=== PATIENT | female | born 2000 | race Caucasian/White ===

== ENCOUNTER 2024-06-30 10:19 | Emergency (ER) | payer MEDICAID, SELFPAY ==
[2024-06-30] VITALS (10 sets, daily range): BP systolic 98–134; BP diastolic 58–82; PULSE 83–112; RESP 14–20; TEMP 36.6–36.9; O2SAT 97–99; BMI 24.8
--- NOTE | ~2024-06-30 | CT_ITS ---
CLINICAL HISTORY: R flank LQ pain, TTP CT abdomen and pelvis with contrast Comparison: None Findings: The lung bases are clear. The right kidney is heterogeneous in appearance. Correlate for pyelonephritis. There is a gallstone with the gallbladder otherwise unremarkable. Remaining solid organs are within normal limits. No renal stones. No bowel obstruction, pneumoperitoneum, or pneumatosis. Pelvic contents unremarkable. Normal appendix. The bones are intact. IMPRESSION: Possible right pyelonephritis. Correlate clinically. This document has been electronically signed by: Jerry Persaud MD on 06/30/2024 20:50:22
[2024-06-30 11:25] LABS: MANUAL DIFF FLAG NO
[2024-06-30 11:28] LABS: Appearance Urine Clear; Color Urine Yellow; Glucose Urine UA Negative (Negative); Leukocyte Esterase Urine Small (1+) (Negative); Nitrite Urine Negative (Negative); Specific Gravity - Urine <= 1.005 (1.005-1.025); UMIC TRIGGER UACC YES; Urine Blood Small (1+) (Negative); Urine Ketones 15 mg/dL (Negative); Urine Protein Negative (Neg-Trace)
[2024-06-30 11:30] LABS: UPreg QC Valid YES; Urine Pregnancy NEGATIVE (NEGATIVE)
[2024-06-30 11:34] LABS: Basophils Absolute Auto 0.1 X10*3/uL (0.0-0.2); Basophils Percent Auto 0.5 % (0-2); Eosinophils Percent Auto 0.1 % (0-4); Hematocrit 36.5 % (37.0-47.0); Hemoglobin 12.4 g/dl (12.0-16.0); Imm Gran Abs Auto 0.07 X10*3/uL (0.00-0.03); Imm Gran Pct Auto 0.5 % (0.0-0.4); Lymphocytes Absolute Auto 1.1 X10*3/uL (1.2-4.9); Mean Corpuscular Hemoglobin 26.8 pg (27.0-33.0); Mean Platelet Volume 9.2 fL (9.4-12.3); Monocytes Absolute Auto 1.1 X10*3/uL (0.1-1.2); Monocytes Percent Auto 8.1 % (2-11); Neutrophils Percent Auto 82.8 % (45-73); Platelet Count 319 X10*3/uL (160-400); Red Blood Count 4.62 X10*6/uL (4.20-5.50); Red Cell Distribution Width 14.2 % (11.0-16.0); White Blood Count 13.3 X10*3/uL (4.8-10.8)
[2024-06-30 11:37] LABS: Bacteria Urine None Seen (None Seen); RBC Urine 0-2 /HPF (0-2); Squamous Epithelial Cell Urine 0-2 /HPF (0-2); UACC Culture Trigger YES
[2024-06-30 11:43] LABS: Alanine Aminotransferase 12 U/L (0-31); Alkaline Phosphatase 77 U/L (39-117); Anion Gap 11 (12-20); Aspartate Amino Transferase 19 U/L (5-31); Bilirubin Direct 0.3 mg/dL (0.0-0.5); Bilirubin Total 0.7 mg/dL (0.0-1.0); Blood Urea Nitrogen 7 mg/dL (9-16); Calcium 9.1 mg/dL (8.4-10.2); Carbon Dioxide 26 mmol/L (22-29); Chloride 98 mmol/L (96-108); Creatinine Clr Calc Pharmacy 92.2; Estimated Glomerular Filt Rate > 60; Glucose Random 94 mg/dL (60-115); Lipase 10 U/L (8-78); Potassium 3.4 mmol/L (3.3-5.1); Sodium 132 mmol/L (135-145); Total Protein 8.3 g/dL (6.5-8.0)
--- OUTSIDE RECORDS SUMMARY | 2024-06-30 16:33 | XMS_ITS | Encounter Summary ---
Author Organization [facility] Address [address] [place] [address] Care Team Providers Care Service Operator Name Role Phone Bridgett Martínez NP Primary Care Provider [phone] Alec Mclain MD Primary Care Provider [phone] Alec Mclain MD Primary Care Provider [phone] Encounter Details Date Type Department Care Team (Late st Contact Info) Description 02/06/2019 Orders Only [facility] [address] [place] [id number] Bridgett Martínez NP [address] [facility] [address] [place], [place] [id number] Social History Tobacco Use Types Packs/Day Years Used Date Smoking Tobacco: Never Smokeless Tobacco: Never Alcohol Use Standard Drinks/Week Comments Not Asked 0 (1 standard drink = 0.6 oz pur e alcohol) Comments No Sex and Gender Information Value Date Recorded Sex Assigned at Not on file Legal Sex Female 11:11 AM EDT Gender Identity Not on file Sexual Orientation Not on file documented as of this encounter Progress Notes * Janice Espino - 02/09/2019 3:58 PM EDT See TM 02/09/19. * Bridgett Martínez NP - 02/09/2019 3:07 PM EDT Please let patient know that her labs show some smaller cells- typically seen in iron deficiency anemia. I have ordered additional labs to fully evaluate this. Once available I can refer to the fertility clinic. documented in this encounter Plan of Treatment Scheduled Orders Name Type Priority Associated Diagnoses Orde r Schedule BASIC METABOLIC PANEL WITH (GFR) Lab Routine Low mean corpuscular volume (MCV) Expected: 07/08/2020 (Approximate), Expires: 07/08/2021 documented as of this encounter Procedures * Due to [place] law, this organization might not be sharing negative HIV tests. Procedure Name Priority Date/Time Associated Diagnosis Comments CBC INCLUDES DIFFERENTIAL AND PLATELET COUNT Routine 02/06/2019 9:14 AM EDT Irregular periods HCG, TOTAL, QL Routine 02/06/2019 9:14 AM EDT Irregular periods TSH, 3RD GENERATION Routine 02/06/2019 9 :14 AM EDT Irregular periods BASIC METABOLIC PANEL WITH (GFR) Routine 02/06/2019 9:14 AM EDT Irregular periods documented in this encounter Results * Due to [place] law, this organization might not be sharing negative HIV tests. * (ABNORMAL) IRON PROFILE (IRON/TIBC), SERUM (07/08/2020 8:31 AM EST) Iron 50 40 - 190 mcg/dL [facility] Iron binding capacity 371 250 - 450 mcg/dL (calc) [facility] Iron saturation 13(L) 16 - 45 % (calc) [facility] 07/08/2020 8:31 AM EST 07/08/2020 9:39 AM EST Narrative Resulting Agency Comment [id number] Bridgett Martínez NP LABORATORY Final Result Performing Organization Address [facility] de Phone Number [facility] [address] [place] [address] * FOLATE, SERUM (07/08/2020 8:31 AM EST) [facility] Folate 14.6 ng/mL [facility] Comment: ? Reference Range ? Low: ? <3.4 ? Borderline: ?3.4-5.4 ? Normal: ?>5.4 07/08/2020 8:31 AM EST 07/08/2020 9:39 AM EST Narrative Resulting Agency Comment [id number] Bridgett Martínez NP LABORATORY Final Result Performing Organization Address [facility] Phone Number [facility] [address] [place] [address] * FERRITIN (07/08/2020 8:31 AM EST) [facility] Ferritin 22 16 - 154 ng/mL [facility] 07/08/2020 8:31 AM EST 07/08/2020 9:39 AM EST Narrative Resulting Agency Comment [id number] Bridgett Martínez NP LABORATORY Final Result Performing Organization Address [facility] de Phone Number [facility] [address] [place] [address] * (ABNORMAL) CBC INCLUDES DIFFERENTIAL AND PLATELET COUNT (07/08/2020 8:31 AM EST) [facility] WBC 6.1 3.8 - 10.8 Thousand/u L [facility] RBC 4.87 3.80 - 5.10 Million/uL [facility] Hemoglobin 12.4 11.7 - 15.5 g/dL [facility] Hematocrit 38.3 35.0 - 45.0 % [facility] MCV 78.6(L) 80.0 - 100.0 fL [facility] MCH 25.5(L) 27.0 - 33.0 pg [facility] MCHC 32.4 32.0 - 36.0 g/dL [facility] RDW 14.6 11.0 - 15.0 % [facility] PLT 365 140 - 400 Thousand/u L [facility] MPV 10.4 7.5 - 12.5 fL [facility] Neutrophils # 3672 1500 - 7800 cells/uL [facility] Lymphocytes # 1787 850 - 3900 cells/uL [facility] Monocytes # 451 200 - 950 cells/uL [facility] Eosinophils # 128 15 - 500 cells/uL [facility] Basophils # 61 0 - 200 cells/uL [facility] Neutrophils % 60.2 % [facility] Lymphocytes % 29.3 % [facility] Monocytes % 7.4 % [facility] Eosinophils % 2.1 % [facility] Basophils % 1.0 % [facility] 07/08/2020 8:31 AM EST 07/08/2020 9:39 AM EST Narrative Resulting Agency Comment [id number] Bridgett Martínez [employer] LAB SAME DAY RESULT Final Resul t Performing Organization Address [facility] Co de Phone Number [facility] [address] [place] [address] * HCG, TOTAL, QL (02/06/2019 9:14 AM EDT) HCG, Qualitative (Screen) NEGATIVE [facility] Comment: Reference Range Non-: Negative : ? Positive 02/06/2019 9:14 AM EDT 02/07/2019 1:48 AM EDT Narrative Resulting Agency Comment [id number] Bridgett Martínez [employer] LAB SAME DAY RESULT Final Resul t Performing Organization Address [facility] Co de Phone Number [facility] [address] [place] [phone] * TSH, 3RD GENERATION (02/06/2019 9:14 AM EDT) TSH 0.93 mIU/L [facility] Comment: ?Reference Range ?> or = 20 Years ??0.40-4.50 ? Ranges ?First trimester ?0.26-2.66 ?Second trimester ?? 0.55-2.73 ?Third trimester ?0.43-2.91 02/06/2019 9:14 AM EDT 02/07/2019 1:48 AM EDT Narrative Resulting Agency Comment [id number] Bridgett Martínez NP LABORATORY Final Result Performing Organization Address City/State/[facility] Co de Phone Number [facility] [address] [place] [address] * (ABNORMAL) CBC INCLUDES DIFFERENTIAL AND PLATELET COUNT (02/06/2019 9:14 AM EDT) WBC 9.2 3.8 - 10.8 Thousand/u L [facility] RBC 4.94 3.80 - 5.10 Million/uL [facility] Hemoglobin 12.2 11.7 - 15.5 g/dL [facility] Hematocrit 38.5 35.0 - 45.0 % [facility] MCV 77.9(L) 80.0 - 100.0 fL [facility] MCH 24.7(L) 27.0 - 33.0 pg [facility] MCHC 31.7(L) 32.0 - 36.0 g/dL [facility] RDW 15.2(H) 11.0 - 15.0 % [facility] PLT 428(H) 140 - 400 Thousand/u L [facility] MPV 10.2 7.5 - 12.5 fL [facility] Neutrophils # 6017 1500 - 7800 cells/uL [facility] Lymphocytes # 2539 850 - 3900 cells/uL [facility] Monocytes # 515 200 - 950 cells/uL [facility] Eosinophils # 64 15 - 500 cells/uL [facility] Basophils # 64 0 - 200 cells/uL [facility] Neutrophils % 65.4 % [facility] Lymphocytes % 27.6 % [facility] Monocytes % 5.6 % [facility] Eosinophils % 0.7 % [facility] Basophils % 0.7 % [facility] 02/06/2019 9:14 AM EDT 02/07/2019 1:48 AM EDT Narrative Resulting Agency Comment [id number] Bridgett Martínez NP LAB SAME DAY RESULT Final Resul t Performing Organization Address [facility] de Phone Number [facility] [address] [place] [address] * BASIC METABOLIC PANEL WITH (GFR) (02/06/2019 9:14 AM EDT) Pathologist [facility] Glucose 87 65 - 99 mg/dL [facility] Comment:Fasting reference in terval Urea Nitrogen Blood (BUN) 8 7 - 25 mg/dL [facility] Creatinine 0.71 0.50 - 1.10 mg/dL [facility] EGFR 123 > OR = 60 mL/min/1. 73m2 [facility] GFR () 142 > OR = 60 mL/min/1. 73m2 [facility] BUN/Creatinine Ratio NOT APPLICABLE 6 - 22 (calc) [facility] Sodium 141 135 - 146 mmol/L [facility] Potassium 4.4 3.5 - 5.3 mmol/L [facility] Chloride 103 98 - 110 mmol/L [facility] Carbon dioxide 25 20 - 32 mmol/L [facility] Calcium 9.7 8.6 - 10.2 mg/dL [facility] 02/06/2019 9:14 AM EDT 02/07/2019 1:48 AM EDT Narrative [facility] - 02/07/2019 12:09 PM EDT Please note that this estimated GFR does not include an adjustment for the patient's height or weight, and can therefore, be viewed as reliable only for patients with heights between 60 and 72 . More precise quantification using a 24-hour urine sample or height-based algorithm is recommended for patients outside of this range of height and for those individuals with more precise needs for GFR calculation. Resulting Agency Comment [id number] Bridgett Martínez NP LABORATORY Final Result Performing Organization Address [facility] Co de Phone Number [facility] [address] [place] [address] documented in this encounter Visit Diagnoses Diagnosis Irregular periods Irregular menstrual cycle Low mean corpuscular volume (MCV) documented in this encounter Additional Health Concerns Infection Onset Date Last Indicated Resolved Time COVID-19 Rule-Out 06/13/2020 06/13/2020 06/14/2020 11:13 AM EST COVID-19 Rule-Out 06/29/2020 06/29/2020 06/29/2020 8:44 PM EST documented as of this encounter Care Teams Service Operator Relationship Specialty Start Date End Date Bridgett Martínez NP PCP - General 06/18/18 02/16/22 Alec Mclain MD [address] [place] [address] PCP - General Family Medicine 02/17/22 08/21/22 Alec Mclain MD [address] [place] [address] PCP - General 08/22/22 documented as of this encounter
--- OUTSIDE RECORDS SUMMARY | 2024-06-30 16:33 | XMS_ITS | Encounter Summary ---
Author Organization [facility] Address [address] [place] [address] Care Team Providers Care Energy Projects Lead Name Role Phone Lloyd Howe MD Primary Care Provider [phone] Bridgett Martínez NP Primary Care Provider [phone] Alec Mclain MD Primary Care Provider [phone] Alec Mclain MD Primary Care Provider [phone] Encounter Details Date Type Department Care Team (Late st Contact Info) Description 07/30/2014 Orders Only [facility] [address] [place] [id number] Lloyd Howe MD [address] [place] [address] Social History Tobacco Use Types Packs/Day Years [...] on file documented as of this encounter Plan of Treatment Pending Results Name Type Priority Associated Diagnoses Date /Time EKG-TO BE READ AND BILLED BY CARDIOLOGY cardiovascular Routine Tachycardia 07/30/2014 5:32 PM EDT documented as of this encounter Procedures * Due to [place] state law, this organization might not be sharing negative HIV tests. Procedure Name Priority Date/Time Associated Diagnosis Comments EKG-TO BE READ & BILLED BY ADULT OR PEDIATRIC CARDIOLOGY Routine 07/30/2014 5:32 PM EDT Tachycardia documented in this encounter Visit Diagnoses Diagnosis Tachycardia Tachycardia, unspecified documented in this encounter Additional Health Concerns Infection Onset Date Last Indicated Resolved Time COVID-19 Rule-Out 06/13/2020 06/13/2020 06/14/2020 11:13 AM EST COVID-19 Rule-Out 06/29/2020 06/29/2020 06/29/2020 8:44 PM EST documented as of this encounter Care Teams Energy Projects Lead Relationship Specialty Start Date End Date Lloyd Howe MD [address] [place] [address] PCP - General 08/15/05 06/17/18 Bridgett Martínez NP [address] [place] [address] PCP - General 06/18/18 02/16/22 Alec Mclain MD [address] [place] [address] PCP - General Family Medicine 02/17/22 08/21/22 Alec Mclain MD [address] [place] [address] PCP - General 08/22/22 documented as of this encounter
--- OUTSIDE RECORDS SUMMARY | 2024-06-30 16:33 | XMS_ITS | Clinical Summary ---
Author Organization [facility] Address [address] [place] [address] Care Team Providers Care Outreach Clinician Name Role Phone Alec Mclain MD Primary Care Provider [phone] Allergies No known active allergies Medications * This document contains information received from the source organization and may not represent a complete record from that organization. No known medications Active Problems Problem Noted Date Diagnosed Date PCOS (polycystic ovarian syndrome) 11/09/2021 Abnormal uterine bleeding (AUB) 09/28/2021 Overview (09/28/2021): 09/2021- All labs wnl, started on KAYLAN Hepatic steatosis 08/25/2021 Class 1 obesity due to exces s calories without serious comorbidity with body mass index (BMI) of 32.0 to 32.9 in adult 07/16/2020 Anxiety 07/16/2020 Gallbladder polyp 07/08/2020 Overview (08/25/2021): 07/08/2020-Per radiology-Gallbladder polyp measuring 3 mm. Given size less than 6 mm, suggest sonographic follow-up at 1, 3 and 5 years according to the Society of gastrointestinal and abdominal radiology. 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 Takes acyclovir for breakout. Routine health maintenance 07/05/2013 BMI (body mass index), pedia tric, 85% to less than 95% for age 0207/05/2013 Spondylolisthesis, grade 1 04/18/2012 Overview (04/18/2012): L5. Dr. Carlin, [facility], [place] orthopedic dickson.Rec FU CT. PT for core strengthening and stretching. RU with spot lateral films at L5. Watch for neurologic symtpoms - bowel or bladder, pain into legs or feet or weakness. Perforation of tympanic membrane 12/16/2009 Overview (09/22/2013): , Resolved Problems Problem Noted Date Diagnosed Date Resolved Date Irregular periods 02/27/2016 11/09/2021 ADHD (attention deficit hype ractivity disorder), combined type 08/12/2009 09/09/2018 Mood Disorder (F39) 08/12/2009 09/10/19 19 Immunizations Name Administration Dates Next Due DTaP 03/16/2003, 0,06/02/1999,03/27,02/06/1999 Flu Vac Purchased 36 mos and older 06/06/2008 Fluzone Vac, 3 Yrs & > 07/11/2013,03/28/2012 HIB (PRP-T) 03/03/2000, 0,03/27/1999,02/06 HPV4 (Gardasil 4) 12/22/2011,07/07/2011,05/04/20 11 Hep A (pedi) 02/02/2014,07/11/2013 Hep B (pedi) 07/31/1999,1998,1998 IPV 03/16/2003,07/31/1999,02/06/1999 Influenza,injectable,quad,Prsrv Fr 02/02/2014 Influenza,seasonal,trivalent ,preservat nette (FLUZONE MDV) 03/17/2003 MMR 03/16/2003,03/03/2000 Meningococcal ACWY (Menactra) 05/03/2015, 011 OPV 03/27/1999 PCV-7 09/24/2000,07/23/2000 State Flu Not O/w Specified, 3 Yrs & > 1 State H1N1 Vaccine,intranasal 04/16/2009 State Influenza Vac,Quad, Pr srv Fr, 3yrs &> 05/03/2015 Tdap 07/16/2020 Tdap(Boostrix) 08/12/2009 Varicella 07/19/2007,03/03/2000 Family History Medical History Relation Name Comments Psych/Mental Health Brother 2 adhd Psych/Mental Health Brother 3 1/2 sib, schizophrenia Kidney Disorder Father Kidney stone s Other Paternal aunt endometriosis Psych/Mental Health Sister 2 adhd Relation Name Status Comments Brother 1 Alaberto Alive Brother 2 Brother 3 Father Alive Mother Alive Paternal aunt Sister 1 Jerri Alive Sister 2 Social History Tobacco Use Types Packs/Day Years Used Date Smoking Tobacco: Never Smokeless Tobacco: Never Alcohol Use Standard Drinks/Week Comments Not Asked 0 (1 standard drink = 0.6 oz pur e alcohol) PHQ-2 Answer Date Recorded PHQ-2 Score 0 07/16/2020 Intimate Partner Violence Answer Date R ecorded Fear of Current or Ex-Partner Not on file Emotionally Abused Not on file 01/23/2023 Physically Abused Not on file 01/23/2023 Sexually Abused Not on file 01/23/2023 Feel Safe at Home Not on file 01/23/2023 Social Connections Answer Date Recorded Phone Communication More than three times a week 03/06/2021 Get together with friends / family Twice a week 03/06/2021 Attend worship services Never 2020 Club Membership No 03/06/2021 Club Attendance Never 03/06/2021 Marital Status Living with partner 03/06/2021 Financial Resource Strain Answer Date R ecorded Difficulty paying for basics Not hard at all Difficulty paying for utilities Not on file 03/06/2021 Food Insecurity Answer Date Recorded Worry that food will run out Often true Inability to get food Often true 03/06/2021 Transportation Needs Answer Date Record ed Lacking transport to medical appts No 03/06/2021 Lacking transport to non-medical No 03/06/2021 Housing Stability Answer Date Recorded Unable to Pay for Housing in the Last Year Yes 07/16/2020 [address] of Places Lived in the Last Year 1 07/16/2020 Unstable Housing in the Last Year No 07/16/2020 Comments No Sex and Gender Information Value Date Recorded Sex Assigned at Not on file Legal Sex Female 11:11 AM EDT Gender Identity Not on file Sexual Orientation Not on file Last Filed Vital Signs Vital Sign Reading Time Taken Comments Blood Pressure 132/80 09/23/2021 2:41 PM EDT Pulse 83 07/16/2020 9:15 AM EST Temperature 36.8 ??C (98.2 ??F) 02/06/2019 8:22 AM ED T Respiratory Rate 16 03/01/2018 11:27 AM EDT Oxygen Saturation 99% 03/01/2018 11:27 AM EDT Inhaled Oxygen Concentration - - Weight 73.5 kg (162 lb) 09/23/2021 2:41 PM EDT Height 149.9 cm (4' 11 ) 09/23/2021 2:41 PM EDT Body Mass Index 32.72 09/23/2021 2:41 PM EDT Plan of Treatment Health Maintenance Due Date Last Done Comments Pap Smear 07/16/2023 07/16/2020 COVID-19 Vaccine ( season) 2024 Influenza (#1) 2024 05/03/2015, 01/22, 07/11/2013, Additional history exists DTaP/Tdap/Td (8 - Td or Tdap) 07/16/2030 07/16/2020, 08/12/2009, 03/16/2003, Additional history exists Zoster (Shingrix) (1 of 2) 2048 07/19/2007, Hep B Completed 07/31/1999, 11/22, 1998 Chest Imaging Discontinued 08/22/1999, 07/23, 06/10/1999 Hib Completed 03/03/2000, 05/24, 03/27/1999, Additional history exists Pneumococcal Aged Out 09/24/2000, 07/23/2000 No lo nger eligible based on patient's age to complete this topic Hearing Discontinued 04/09/2008, 04/23, 05/06/2006, Additional history exists HPV Vaccine Completed 12/22/2011, 06/24, 05/04/2011 Eye/Retina Exam Discontinued 07/17/2013, 06/25, 07/10/2009, Additional history exists Hep A Completed 02/02/2014, 07/11/2013 EKG Discontinued 07/30/2014, 09/30/2004 Meningococcal ACWY Completed 05/03/2015, 08/25/2010 LDL Cholesterol Discontinued 09/09/2018, 08/22, 08/04/2014, Additional history exists Hepatitis C Screening Completed 06/29/2020 Physical Discontinued 07/16/2020, 08/22, 02/27/2016, Additional history exists Chlamydia Discontinued 09/23/2021, 06/25, 07/08/2020, Additional history exists Procedures * Due to [place] AdCrimson law, this organization might not be sharing negative HIV tests. Procedure Name Priority Date/Time Associated Diagnosis Comments CHLAMYDIA TRACHOMATIS/N. GONORRHOEAE (GC) RNA, TMA (APTIMA GENITAL SWAB) Routine 09/23/2021 4:43 PM EDT Abnormal uterine bleeding (AUB) THINPREP TIS PAP REFLEX HPV MRNA E6/E7, CT/NG, TRICH Routine 07/16/2020 9:57 AM EST Screening for cervical cancer ACUTE HEPATITIS PANEL Routine 06/29/2020 3:35 PM EST LIPID PROFILE + FASTING GLUCOSE Routine 09/09/2018 9:55 AM EDT Screening for diabetes mellitus Screening for cholesterol level EKG-TO BE READ & BILLED BY ADULT OR PEDIATRIC CARDIOLOGY Routine 07/30/2014 5:32 PM EDT Tachycardia COMPREHENSIVE AUDIOMETRY THRESHOLD EVAL & SPEECH RECOGNITION Routine 04/09/2008 11:30 AM EST Unspecified Perforation of Tympanic Membrane Conductive Hearing Loss, Unilateral XRAY CHEST 2 VIEWS PA & LAT Routine 06/10/1999 4:15 PM EST Pneumonia, Organism Unspecified from Last 3 Months or Most Recently Relevant to Health Maintenance Results * Due to [place] AdCrimson law, this organization might not be sharing negative HIV tests. * CHLAMYDIA TRACHOMATIS/N. GONORRHOEAE (GC) RNA, TMA (APTIMA GENITAL SWAB) (09/23/2021 4:43 PM EDT) Chlamydia trachomatis rRNA NOT DETECTED NOT DETECTED [facility] Neisseria Gonorrhoeae rRNA NOT DETECTED NOT DETECTED [facility] COMMENT SEE NOTE [facility] Comment: The analytical performance characteristics of this assay, when used to test SurePath(TM) specimens have been determined by [facility]. The modifications have not been cleared or approved by the FDA. This assay has been validated pursuant to the CLIA regulations and is used for clinical purposes. For additional information, please refer to https://education.UB Access/faq/GJC049 (This link is being provided for information/ educational purposes only.) 09/23/2021 4:43 PM EDT 09/23/2021 9:55 PM EDT Narrative Resulting Agency Comment [id number] Hola Clements NP LABORATORY Final Result Performing Organization Address City/State/[facility] Co de Phone Number [facility] [address] [place] [address] * THINPREP TIS PAP REFLEX HPV MRNA E6/E7, CT/NG, TRICH (07/16/2020 9:57 AM EST) Clinical information None given [facility] Date last menstrual period 06/26/20 [facility] Date of previous PAP smear NONE [facility] Date of previous biopsy NONE GIVEN [facility] Specimen source (Cvx/Vag) None given [facility] Statement of Adequacy (Cvx/Vag) Satisfactory for evaluation. Endocervical/manuel sformation zone component absent. [facility] Cytology, Pap Smear Negative for intraepithelial lesion or malignancy. [facility] Cytology study comment (Cvx/Vag) This Pap test has been evaluated with computer assisted technology. [facility] Child Care Group Leader (Cvx/Vag) BKCT(ASCP) CT screening location: [address] [facility] COMMENT SEE NOTE [facility] Comment: EXPLANATORY NOTE: The Pap is a screening test for cervical cancer. It is not a diagnostic test and is subject to false negative and false positive results. It is most reliable when a satisfactory sample, regularly obtained, is submitted with relevant clinical findings and history, and when the Pap result is evaluated along with historic and current clinical information. Chlamydia trachomatis rRNA NOT DETECTED NOT DETECTED [facility] Neisseria Gonorrhoeae rRNA NOT DETECTED NOT DETECTED [facility] COMMENT SEE NOTE [facility] Comment: The analytical performance characteristics of this assay, when used to test SurePath(TM) specimens have been determined by [facility]. The modifications have not been cleared or approved by the FDA. This assay has been validated pursuant to the CLIA regulations and is used for clinical purposes. For additional information, please refer to https://eSpace.UB Access/faq/LEG843 (This link is being provided for information/ educational purposes only.) Trichomonas vaginalis rRNA NOT DETECTED NOT DETECTED [facility] Comment: The analytical performance characteristics of this assay have been determined by [facility]. The modifications have not been cleared or approved by the FDA. This assay has been validated pursuant to the CLIA regulations and is used for clinical purposes. For additional information, please refer to http://eSpace.UB Access/ faq/Trichomonastma (This link is being provided for information/ educational purposes only.) 07/16/2020 9:57 AM EST 07/17/2020 12:02 AM EST Narrative Resulting Agency Comment [id number] Bridgett Martínez NP PATHOLOGY-INTERFACED Final Resu lt [facility] [address] [place] [address] * ACUTE HEPATITIS PANEL (06/29/2020 3:35 PM EST) HEPATITIS A AB.IGM Negative Negative [facility] HEPATITIS B CORE AB.IGM Negative Negative [facility] HBSAG SCREEN Negative Negative [facility] HEP C VIRUS AB <0.1 0.0 - 0.9 s/co ratio [facility] Comment: ? Negative: ? < 0.8 ?Indeterminate: 0.8 - 0.9 ? Positive: ? > 0.9 ?The CDC recommends that a positive HCV antibody result ?be followed up with a HCV Nucleic Acid Amplification ?test (140519). 06/29/2020 3:35 PM EST 06/29/2020 3:35 PM EST us Emergency Rm Provider [facility] LABORATORY Final Result Performing Organization Address City/State/[facility] Co de Phone Number [facility] [address] [place] [address] * (ABNORMAL) COMPREHENSIVE AUDIOMETRY THRESHOLD EVAL & SPEECH RECOGNITION (04/09/2008 11:30 AM EST) Impressions Bogdan Smalls - 04/09/2008 11:30 AM EST See narative Narrative Bogdan Smalls - 04/09/2008 11:30 AM EST Reason for Visit: Audio first with ENT consult with Dr. Velasquez. She has an appt 04/11/08. Results: Headphones: Right: Mild loss 250 hz and mild conductive HL 4khz, otherwise WNL Left: WNL ?? Excellent discrim AU Tympanometry: Right: Large volume Left: Large volume Recommendations: Patient will see ENT as planned for consult and treatment. us Bogdan Smalls MS CCC A PROCEDURES Final Re sult * XRAY CHEST 2 VIEWS PA & LAT (06/10/1999 4:15 PM EST) RADIOLOGY REPORT Chest: Lungs and pleural reflections are clear. Heart size configuration and vascular pattern normal. Conclusion: No acute disease. [facility] (CLIA# [id number]) Anatomical Region Laterality Modality Other 06/10/1999 4:15 PM EST Narrative 06/11/1999 11:58 AM EST Reason for Study/History: 4MO OLD W/ FEVER WHEEZING R/O PNEUMONIA Test(s) processed by : [facility] us [facility] GENERAL IMAGING- OTHER Final Res ult from Last 3 Months or Most Recently Relevant to Health Maintenance Advance Directives Documents on File Type Date Recorded Patient Second Steward Expl anation Advance Directives and Livin g Will 03/01/2018 11:20 AM Power of Dinker 03/01/2018 11:20 AM Care Teams Outreach Clinician Relationship Specialty Start Date End Date Alec Mclain MD [address] [place] [address] PCP - General 08/22/22
--- OUTSIDE RECORDS SUMMARY | 2024-06-30 16:33 | XMS_ITS | Encounter Summary ---
Author Organization [facility] Address [address] [place] [address] Care Team Providers Care Personnel Recruiter Name Role Phone Lloyd Howe MD Primary Care Provider [phone] Bridgett Martínez NP Primary Care Provider [phone] Alec Mclain MD Primary Care Provider [phone] Alec Mclain MD Primary Care Provider [phone] Encounter Details Date Type Department Care Team (Late st Contact Info) Description 08/12/2009 Orders Only [facility] [address] [place] [phone] Lloyd Howe MD [address] [place] [address] Social History Tobacco Use Types Packs/Day Years Used Date Smoking Tobacco: Never Assessed Comments No Sex and Gender Information Value Date Recorded Sex Assigned at Not on file Legal Sex Female 11:11 AM EDT Gender Identity Not on file Sexual Orientation Not on file documented as of this encounter Plan of Treatment Not on file documented as of this encounter Procedures * Due to [place] state law, this organization might not be sharing negative HIV tests. Procedure Name Priority Date/Time Associated Diagnosis Comments URINALYSIS, COMPLETE (DIP & MICRO) Routine 08/12/2009 Back pain documented in this encounter Results * Due to [place] state law, this organization might not be sharing negative HIV tests. * URINALYSIS, COMPLETE (DIP & MICRO) (08/12/2009) COLOR (URINE) YELLOW YELLOW [facility] APPEARANCE (URINE) CLEAR CLEAR [facility] SPECIFIC GRAVITY 1.018 1.001 - 1.035 [facility] PH (URINE) 7.0 5.0 - 8.0 [facility] PROTEIN (URINE) NEG NEG [facility] GLUCOSE (URINE) NEG NEG [facility] Ketones (Urine) NEG NEG [facility] BILIRUBIN (URINE) NEG NEG [facility] BLOOD (URINE) NEG NEG [facility] WBC (URINE) NEG NEG [facility] NITRITE (URINE) NEG NEG [facility] WBC (URINE) 0-5 0-4/HPF [facility] RBC (Urine Sed) 0 0-3/HPF [facility] EPITHELIAL CELLS.SQUAMOUS (URINE SED) 0 0-5/HPF [facility] EPITHELIAL CELLS.TRANSITI ONAL (URINE SED) 0 0-5/HPF [facility] EPITHELIAL CELLS.RENAL (URINE SED) 0 0-3/HPF [facility] BACTERIA (URINE) NONE SEEN NONE SEEN [facility] 08/12/2009 08/12/2009 9:5 4 PM EDT us Lloyd Howe MD LAB SAME DAY RESULT Final Res ult Performing Organization Address City/State/[facility] Co de Phone Number [facility] [address] [place] [address] documented in this encounter Visit Diagnoses Diagnosis Back pain Backache, unspecified documented in this encounter Additional Health Concerns Infection Onset Date Last Indicated Resolved Time COVID-19 Rule-Out 06/13/2020 06/13/2020 06/14/2020 11:13 AM EST COVID-19 Rule-Out 06/29/2020 06/29/2020 06/29/2020 8:44 PM EST documented as of this encounter Care Teams Personnel Recruiter Relationship Specialty Start Date End Date Lloyd Howe MD [address] [facility] [address] PCP - General 08/15/05 06/17/18 Bridgett Martínez NP [address] [place] [address] PCP - General 06/18/18 02/16/22 Alec Mclain MD [address] [place] [address] PCP - General Family Medicine 02/17/22 08/21/22 Alec Mclain MD [address] [place] [address] PCP - General 08/22/22 documented as of this encounter
--- OUTSIDE RECORDS SUMMARY | 2024-06-30 16:33 | XMS_ITS | Encounter Summary ---
Author Organization [facility] Address [address] [place] [address] Care Team Providers Care Store Group Manager Name Role Phone Bridgett Martínez NP Primary Care Provider [phone] Alec Mclain MD Primary Care Provider [phone] Alec Mclain MD Primary Care Provider [phone] Reason for Visit * Reason Onset Date Comments Refill Request 12/24/2021 Encounter Details Date Type Department Care Team (Late st Contact Info) Description 12/24/2021 Refill [facility] EARLY CHILDHOOD SPECIALIST [address] [place] [phone] Hola Clements NP Refill Request Social History Tobacco Use Types Packs/Day Years Used Date Smoking Tobacco: Never Smokeless Tobacco: Never Alcohol Use Standard Drinks/Week Comments Not Asked 0 (1 standard drink = 0.6 oz pur e alcohol) PHQ-2 Answer Date Recorded PHQ-2 Score 0 07/16/2020 Social Connections Answer Date Recorded Phone Communication More than three times a week 03/06/2021 Get together with friends / family Twice a week 03/06/2021 Attend zoroastrianism services Never 2020 Club Membership No 03/06/2021 [...] on file documented as of this encounter Visit Diagnoses Not on filedocumented in this encounter Care Teams Store Group Manager Relationship Specialty Start Date End Date Bridgett Martínez NP PCP - General 06/18/18 02/16/22 Alec Mclain MD [address] [place] [address] PCP - General Family Medicine 02/17/22 08/21/22 Alec Mclain MD [address] [place] [address] PCP - General 08/22/22 documented as of this encounter
--- OUTSIDE RECORDS SUMMARY | 2024-06-30 16:33 | XMS_ITS | Encounter Summary ---
Author Organization [facility] Address [address] [place] [address] Care Team Providers Care Borematic Operator Name Role Phone Lloyd Howe MD Primary Care Provider [phone] Bridgett Martínez NP Primary Care Provider Alec Mclain MD Primary Care Provider [phone] Alec Mclain MD Primary Care Provider [phone] Encounter Details Date Type Department Care Team (Late st Contact Info) Description 04/01/2012 Orders Only [facility] [address] [place] [phone] Lloyd Howe MD [address] [place] [address] Social History Tobacco Use Types Packs/Day Years [...] Diagnoses Not on filedocumented in this encounter Additional Health Concerns Infection Onset Date Last Indicated Resolved Time COVID-19 Rule-Out 06/13/2020 06/13/2020 06/14/2020 11:13 AM EST COVID-19 Rule-Out 06/29/2020 06/29/2020 06/29/2020 8:44 PM EST documented as of this encounter Care Teams Borematic Operator Relationship Specialty Start Date End Date Lloyd Howe MD [address] [place] [address] PCP - General 08/15/05 06/17/18 Bridgett Martínez NP [address] [place] [address] PCP - General 06/18/18 02/16/22 Alec Mclain MD [address] [place] [address] PCP - General Family Medicine 02/17/22 08/21/22 Alec Mclain MD [address] [place] [address] PCP - General 08/22/22 documented as of this encounter
--- OUTSIDE RECORDS SUMMARY | 2024-06-30 16:33 | XMS_ITS | Encounter Summary ---
Author Organization [facility] Address [address] [place] [address] Care Team Providers Care Sales Promoter Name Role Phone Alec Mclain MD Primary Care Provider [phone] Encounter Details Date Type Department Care Team (Late st Contact Info) Description 02/23/2023 Orders Only [facility] [address] [facility] [address] [place] [address] Danielle Villareal, Pharmacy Navigator [address] [facility] [place] [address] Medications Social History Tobacco Use Types Packs/Day Years [...] / family Twice a week 03/06/2021 Attend jewish services Never 2020 Club Membership No 03/06/2021 [...] on filedocumented in this encounter Care Teams Sales Promoter Relationship Specialty Start Date End Date Alec Mclain MD [address] [place] [address] PCP - General 08/22/22 documented as of this encounter
--- OUTSIDE RECORDS SUMMARY | 2024-06-30 16:33 | XMS_ITS | Encounter Summary ---
Author Organization [facility] Address [address] [place] [address] Care Team Providers Care Post Closing Specialist Name Role Phone Lloyd Howe MD Primary Care Provider [phone] Bridgett Martínez NP Primary Care Provider [phone] Alec Mclain MD Primary Care Provider [phone] Alec Mclain MD Primary Care Provider [phone] Encounter Details Date Type Department Care Team (Late st Contact Info) Description 02/27/2016 Orders Only [facility] [address] [place] [phone] Monet Kenny NP [address] [place] [address] Social History Tobacco Use Types Packs/Day Years [...] of this encounter Procedures * Due to [place] state law, this organization might not be sharing negative HIV tests. Procedure Name Priority Date/Time Associated Diagnosis Comments CHLAMYDIA TRACHOMATIS/N. GONORRHOEAE (GC) RNA, TMA (URINE) Routine 02/27/2016 7:37 PM EDT Encounter for screening for infections with predominantly sexual mode of transmission documented in this encounter Results * Due to [facility] law, this organization might not be sharing negative HIV tests. * CHLAMYDIA TRACHOMATIS/N. GONORRHOEAE (GC) RNA, TMA (URINE) (02/27/2016 7:37 PM EDT) Chlamydia trachomatis rRNA NOT DETECTED NOT DETECTED [facility] Comment:{CHLAMYDIA TRACHOMAT IS RNA, TMA {[id number]) Neisseria Gonorrhoeae rRNA NOT DETECTED NOT DETECTED [facility] Comment:{NEISSERIA GONORRHOE AE RNA, TMA {[id number]) COMMENT SEE NOTE [facility] Comment: {COMMENT {[id number]) This test was performed using the APTIMA COMBO2 Assay ([employer] The analytical performance characteristics of this assay, when used to test SurePath specimens have been determined by [employer]. 02/27/2016 7:37 PM EDT 02/27/2016 11:59 PM EDT Narrative Resulting Agency Comment [id number] us Monet Kenny NP LABORATORY Final Result Performing Organization Address City/State/[facility] Co de Phone Number [facility] [address] [place] [address] documented in this encounter Visit Diagnoses Diagnosis Encounter for screening for infections with predominantly sexual mode of transmission Screening examination for venereal disease documented in this encounter Additional Health Concerns Infection Onset Date Last Indicated Resolved Time COVID-19 Rule-Out 06/13/2020 06/13/2020 06/14/2020 11:13 AM EST COVID-19 Rule-Out 06/29/2020 06/29/2020 06/29/2020 8:44 PM EST documented as of this encounter Care Teams Post Closing Specialist Relationship Specialty Start Date End Date Lloyd Howe MD [address] [facility] [place] [address] PCP - General 08/15/05 06/17/18 Bridgett Martínez NP [address] [place] [address] PCP - General 06/18/18 02/16/22 Alec Mclain MD [address] [place] [address] PCP - General Family Medicine 02/17/22 08/21/22 Alec Mclain MD [address] [place] [address] PCP - General 08/22/22 documented as of this encounter
--- OUTSIDE RECORDS SUMMARY | 2024-06-30 16:33 | XMS_ITS | Encounter Summary ---
Author Organization [facility] Address [address] [place] [address] Care Team Providers Care Forest Examiner Name Role Phone Bridgett Martínez NP Primary Care Provider [phone] Alec Mclain MD Primary Care Provider [phone] Alec Mclain MD Primary Care Provider [phone] Encounter Details Date Type Department Care Team (Late st Contact Info) Description 09/23/2021 Orders Only [facility] [address] [employer]PER[employer] [address] [place] [address] Hola Clements NP Social History Tobacco Use Types Packs/Day Years [...] / family Twice a week 03/06/2021 Attend sikhism services Never 2020 Club Membership No 03/06/2021 [...] on file documented as of this encounter Miscellaneous Notes * Result Encounter Note - Hola Clements NP - 09/23/2021 3:17 PM EDT Noted. normal result note sent to pt via [employer] documented in this encounter Plan of Treatment Not on file documented as of this encounter Procedures * Due to [place] state law, this organization might not be sharing negative HIV tests. Procedure Name Priority Date/Time Associated Diagnosis Comments CHLAMYDIA TRACHOMATIS/N. GONORRHOEAE (GC) RNA, TMA (APTIMA GENITAL SWAB) Routine 09/23/2021 4:43 PM EDT Abnormal uterine bleeding (AUB) BV/VAGINITIS PANELDNA PROBE(AFFIRM) Routine 09/23/2021 4:43 PM EDT Abnormal uterine bleeding (AUB) HCG, TOTAL, QL Routine 09/23/2021 3:18 PM EDT Abnormal uterine bleeding (AUB) THYROID CASCADING REFLEX Routine 09/23/2021 3:18 PM EDT Abnormal uterine bleeding (AUB) VENIPUNCTURE Routine 09/23/2021 3:18 PM EDT Abnormal uterine bleeding (AUB) PROLACTIN Routine 09/23/2021 3:18 PM EDT Abnormal uterine bleeding (AUB) 17-HYDROXYPROGESTERON E, LC/MS/MS Routine 09/23/2021 3:18 PM EDT Abnormal uterine bleeding (AUB) LUTEINIZING HORMONE (LH), SERUM Routine 09/23/2021 3:18 PM EDT Abnormal uterine bleeding (AUB) FSH Routine 09/23/2021 3:18 PM EDT Abnormal uterine bleeding (AUB) ESTRADIOL, RAPID Routine 09/23/2021 3:18 PM EDT Abnormal uterine bleeding (AUB) documented in this encounter Results * Due to [facility] law, this organization might not be sharing negative HIV tests. * BV/VAGINITIS PANELDNA PROBE (09/23/2021 4:43 PM EDT) Trichomonas vaginalis rRNA (Genital) NOT DETECTED NOT DETECTED [facility] Gardnerella vaginalis rRNA (Genital) NOT DETECTED NOT DETECTED [facility] Zuleyma sp rRNA (Vag) NOT DETECTED NOT DETECTED [facility] 09/23/2021 4:43 PM EDT 09/23/2021 9:55 PM EDT Narrative Resulting Agency Comment [id number] Hola Clements NP LABORATORY Final Result Performing Organization Address City/State/[facility] Co de Phone Number [facility] [address] [place] [address] * CHLAMYDIA TRACHOMATIS/N. GONORRHOEAE (GC) RNA, TMA (APTIMA GENITAL SWAB) (09/23/2021 4:43 PM EDT) Chlamydia trachomatis rRNA NOT DETECTED NOT DETECTED [facility] Neisseria Gonorrhoeae rRNA NOT DETECTED NOT DETECTED [facility] COMMENT SEE NOTE [facility] Comment: The analytical performance characteristics of this assay, when used to test SurePath(TM) specimens have been determined by [employer]. The modifications have not been cleared or approved by the FDA. This assay has been validated pursuant to the CLIA regulations and is used for clinical purposes. For additional information, please refer to https://education.Studio Bloomed.Insync Systems/faq/YDU001 (This link is being provided for information/ educational purposes only.) 09/23/2021 4:43 PM EDT 09/23/2021 9:55 PM EDT Narrative Resulting Agency Comment [id number] Hola Clements NP LABORATORY Final Result Performing Organization Address [facility] Co de Phone Number [facility] [address] [place] [address] * THYROID CASCADING REFLEX (09/23/2021 3:18 PM EDT) TSH 1.24 mIU/L [facility] Comment: ?Reference Range ?> or = 20 Years ??0.40-4.50 ? Ranges ?First trimester ?0.26-2.66 ?Second trimester ?? 0.55-2.73 ?Third trimester ?0.43-2.91 09/23/2021 3:18 PM EDT 09/23/2021 10:26 PM EDT Narrative Resulting Agency Comment [id number] Hola Clements NP LABORATORY Final Result Performing Organization Address [facility] de Phone Number [facility] [address] [place] [address] * PROLACTIN (09/23/2021 3:18 PM EDT) Prolactin 4.4 ng/mL [facility] Comment: ?Reference Range Females ?Non- ?3.0-30.0 ? 10.0-209.0 ?Postmenopausal ?2.0-20.0 09/23/2021 3:18 PM EDT 09/23/2021 10:26 PM EDT Narrative Resulting Agency Comment [id number] Hola Clements PASSPORT SUPPORT MANAGER LAB SAME DAY RESULT Final Resu lt Performing Organization Address [facility] de Phone Number [facility] [address] [place] [address] * LUTEINIZING HORMONE (LH), SERUM (09/23/2021 3:18 PM EDT) Luteinizing Hormone (LH) 11.1 mIU/mL [facility] Comment: ? Reference Range ? Follicular Phase ??1.9-12.5 ? Mid-Cycle Peak ?8.7-76.3 ? Luteal Phase ?0.5-16.9 ? Postmenopausal ?10.0-54.7 09/23/2021 3:18 PM EDT 09/23/2021 10:26 PM EDT Narrative Resulting Agency Comment [id number] Hola Clements PASSPORT SUPPORT MANAGER LAB SAME DAY RESULT Final Resu lt Performing Organization Address [facility] de Phone Number [facility] [address] [place] [address] * HCG, TOTAL, QL (09/23/2021 3:18 PM EDT) HCG, Qualitative (Screen) NEGATIVE [facility] Comment: Reference Range Non-: Negative : ? Positive 09/23/2021 3:18 PM EDT 09/23/2021 10:26 PM EDT Narrative Resulting Agency Comment [id number] Hola Clements PASSPORT SUPPORT MANAGER LAB SAME DAY RESULT Final Resu lt Performing Organization Address [facility] de Phone Number [facility] [address] [place] [address] * FSH (09/23/2021 3:18 PM EDT) FSH 5.3 mIU/mL [facility] Comment: ?Reference Range ? Follicular Phase ? 2.5-10.2 ? Mid-cycle Peak ? 3.1-17.7 ? Luteal Phase ? 1.5- 9.1 ? Postmenopausal ? 23.0-116.3 ? 09/23/2021 3:18 PM EDT 09/23/2021 10:26 PM EDT Narrative Resulting Agency Comment [id number] Hola Clements PASSPORT SUPPORT MANAGER LAB SAME DAY RESULT Final Resu lt [facility] [address] [place] [address] * ESTRADIOL, RAPID (09/23/2021 3:18 PM EDT) Estradiol 32 pg/mL [facility] [employer] [facility] Comment: ?Reference Range ?Follicular Phase: ?19-144 ?Mid-Cycle: ? 64-357 ?Luteal Phase: ?56-214 ?Postmenopausal: ?< or = 31 Reference range established on post-pubertal patient population. No pre-pubertal reference range established using this assay. For any patients for whom low Estradiol levels are anticipated (e.g. males, pre-pubertal children and hypogonadal/post-menopausal females), the [facility] [facility] Estradiol, Ultrasensitive, LCMSMS assay is recommended (order code 28046). Please note: patients being treated with the drug fulvestrant (Faslodex(R)) have demonstrated significant interference in immunoassay methods for estradiol measurement. The cross reactivity could lead to falsely elevated estradiol test results leading to an inappropriate clinical assessment of estrogen status. [employer] order code [id number], Ultrasensitive LC/MS/MS demonstrates negligible cross reactivity with fulvestrant. 09/23/2021 3:18 PM EDT 09/23/2021 10:26 PM EDT Narrative Resulting Agency Comment [id number] Hola Clements PASSPORT SUPPORT MANAGER LAB SAME DAY RESULT Final Resu lt [facility] [address] [place] [address] * 17-HYDROXYPROGESTERONE, LC/MS/MS (09/23/2021 3:18 PM EDT) 17-Hydroxyproges terone 37 see note ng/dL [facility] Comment: Unable to flag abnormal result(s), please refer ?to reference range(s) below: Adult Female Reference Ranges ??for 17-Hydroxyprogesterone: ??Pre-Menopausal Mid Follicular: ??23 - 102 ng/dL ??Pre-Menopausal Surge: ? 67 - 349 ng/dL ??Pre-Menopausal Mid Luteal: ? 139 - 431 ng/dL ??Postmenopausal Phase: ?< or = 45 ng/dL ?Female Waqar Stages: ??II - III Females: ??18 - 220 ng/dL ??IV - V ?? Females: ??36 - 200 ng/dL Includes data from J Clin Endocrinol Metab. ??1990;73:674-686; J Clin Endocrinol Metab. ??1989;69;9118-0004; J Clin Endocrinol Metab. ??1994;78:226-270. Pediatr Res 1988;23:525-529. ??MedLinePlus (accessed 11/06/13). This test was developed and its analytical performance characteristics have been determined by [employer] [place], [place]. It has not been cleared or approved by the U.S. Food and Drug Administration. This assay has been validated pursuant to the CLIA regulations and is used for clinical purposes. 09/23/2021 3:18 PM EDT 09/23/2021 10:26 PM EDT Narrative Resulting Agency Comment [id number] Hola Clements NP LABORATORY Final Result Performing Organization Address [facility] Co de Phone Number [facility] [address] [place] [address] * TESTOSTERONE, FREE(DIALYSIS) AND TOTAL, MS (09/23/2021 3:18 PM EDT) [facility] Signature Testosterone 18 2 - 45 ng/dL [facility] Comment: For additional information, please refer to http://education.Euclid/faq/ GlfmqZsdmifkuqchkJLLQRMDTZ603 (This link is being provided for informational/ educational purposes only.) This test was developed and its analytical performance characteristics have been determined by [employer] [place]. It has not been cleared or approved by the U.S. Food and Drug Administration. This assay has been validated pursuant to the CLIA regulations and is used for clinical purposes. Testosterone, Free 3.2 0.1 - 6.4 pg/mL [employer] Comment: This test was developed and its analytical performance characteristics have been determined by [employer]. It has not been cleared or approved by the U.S. Food and Drug Administration. This assay has been validated pursuant to the CLIA regulations and is used for clinical purposes. 09/23/2021 3:18 PM EDT 09/23/2021 10:26 PM EDT Narrative Resulting Agency Comment [id number] Hola Clements NP LABORATORY Final Result Performing Organization Address [facility] Co de Phone Number [facility] [address] [place] [address] documented in this encounter Visit Diagnoses Diagnosis Abnormal uterine bleeding (AUB) documented in this encounter Care Teams Forest Examiner Relationship Specialty Start Date End Date Bridgett Martínez NP PCP - General 06/18/18 02/16/22 Alec Mclain MD [address] [place] [address] PCP - General Family Medicine 02/17/22 08/21/22 Alec Mclain MD [address] [place] [address] PCP - General 08/22/22 documented as of this encounter
--- OUTSIDE RECORDS SUMMARY | 2024-06-30 16:33 | XMS_ITS | Encounter Summary ---
Author Organization [facility] Address [address] [place] [address] Care Team Providers Care Installation Technician Name Role Phone Bridgett Martínez NP Primary Care Provider [phone] Alec Mclain MD Primary Care Provider [phone] Alec Mclain MD Primary Care Provider [phone] Encounter Details Date Type Department Care Team (Late st Contact Info) Description 09/09/2018 Orders Only [facility] [address] [place] [id number] Lloyd Howe MD [address] [place] [address] Social History Tobacco Use Types Packs/Day Years [...] as of this encounter Progress Notes * Lloyd Howe MD - 09/30/2018 9:02 AM EDT Results reviewed with Gabi. documented in this encounter Plan of Treatment Pending Results Name Type Priority Associated Diagnoses Date /Time LIPID PROFILE + FASTING GLUCOSE Lab Routine Screening for diabetes mellitus Screening for cholesterol level 09/09/2018 9:55 AM EDT documented as of this encounter Procedures * Due to [place] [employer] law, this organization might not be sharing negative HIV tests. Procedure Name Priority Date/Time Associated Diagnosis Comments HCG TOTAL, QL (ON-SITE) Result within visit 09/09/2018 9:55 AM EDT Secondary amenorrhea TESTOSTERONE,TOTAL, MS Routine 09/09/2018 9:55 AM EDT Secondary amenorrhea CHLAMYDIA TRACHOMATIS/N. GONORRHOEAE (GC) RNA, TMA (URINE) Routine 09/09/2018 9:55 AM EDT Encounter for screening for infections with predominantly sexual mode of transmission LIPID PROFILE + FASTING GLUCOSE Routine 09/09/2018 9:55 AM EDT Screening for diabetes mellitus Screening for cholesterol level CBC INCLUDES DIFFERENTIAL AND PLATELET COUNT Routine 09/09/2018 9:55 AM EDT Screening for deficiency anemia DHEA SULFATE Routine 09/09/2018 9:55 AM EDT Secondary amenorrhea LIPID PANEL, PLASMA Routine 09/09/2018 9 :55 AM EDT COMPREHENSIVE METABOLIC PANEL WITH GFR Routine 09/09/2018 9:55 AM EDT Secondary amenorrhea documented in this encounter Results * Due to [place] state law, this organization might not be sharing negative HIV tests. * (ABNORMAL) LIPID PANEL, PLASMA (09/09/2018 9:55 AM EDT) Cholesterol 167 <170 mg/dL [facility] HDL Cholesterol 46 >45 mg/dL [facility] Triglyceride 115(H) <90 mg/dL [facility] LDL Cholesterol 100 <110 mg/dL (calc) [facility] Comment: LDL-C is now calculated using the George-Bender calculation, which is a validated novel method providing better accuracy than the Friedewald equation in the estimation of LDL-C. George SS et al. PASCALE. 2013;310(93): 0774-6724 (http://education.Monitor My Meds/faq/BHI189) CHOL/HDL Ratio 3.6 <5.0 (calc) [facility] Cholesterol Non-HDL 121(H) <120 mg/dL (calc) [facility] Comment: For patients with diabetes plus 1 major ASCVD risk factor, treating to a non-HDL-C goal of <100 mg/dL (LDL-C of <70 mg/dL) is considered a therapeutic option. 09/09/2018 9:55 AM EDT 09/09/2018 10:15 AM EDT us Lloyd Howe MD LABORATORY Final Result Performing Organization Address [facility] de Phone Number [facility] [address] [place] [address] * HCG TOTAL, QL (ON-SITE) (09/09/2018 9:55 AM EDT) HCG, Qualitative (Screen) NEGATIVE See Note: [facility] Comment: Reference Range: Reference Range Non-: Negative : ? Positive 09/09/2018 9:55 AM EDT 09/09/2018 10:13 AM EDT Narrative Resulting Agency Comment [id number] Lloyd Howe MD LAB SAME DAY RESULT Final Res ult Performing Organization Address [facility] de Phone Number [facility] [address] [place] [address] * DHEA SULFATE (09/09/2018 9:55 AM EDT) DHEA SULFATE 246 51 - 321 mcg/dL [facility] 09/09/2018 9:55 AM EDT 09/09/2018 10:15 AM EDT Narrative Resulting Agency Comment [id number] Lloyd Howe MD LABORATORY Final Result Performing Organization Address [facility] de Phone Number [facility] [address] [place] [address] * TESTOSTERONE,TOTAL, MS (09/09/2018 9:55 AM EDT) Testosterone 24 2 - 45 ng/dL [facility] Comment: For additional information, please refer to http://education.Basic-Fit/faq/ InytmNyunmsmnygocYZBXVOTQR283 (This link is being provided for informational/ educational purposes only.) This test was developed and its analytical performance characteristics have been determined by [employer] [place], [place]. It has not been cleared or approved by the U.S. Food and Drug Administration. This assay has been validated pursuant to the CLIA regulations and is used for clinical purposes. 09/09/2018 9:55 AM EDT 09/09/2018 10:15 AM EDT Narrative Resulting Agency Comment [id number] Lloyd Howe MD LABORATORY Final Result [facility] [address] [place] [address] * COMPREHENSIVE METABOLIC PANEL WITH GFR (09/09/2018 9:55 AM EDT) Glucose 90 65 - 99 mg/dL [facility] Comment:Fasting reference in terval Urea Nitrogen Blood (BUN) 12 7 - 20 mg/dL [facility] Creatinine 0.74 0.50 - 1.00 mg/dL [facility] EGFR 117 > OR = 60 mL/min/1 .73m2 [facility] GFR () 136 > OR = 60 mL/min/1 .73m2 [facility] BUN/Creatinine Ratio NOT APPLICABLE 6 - 22 (calc) [facility] Sodium 140 135 - 146 mmol/L [facility] Potassium 4.1 3.8 - 5.1 mmol/L [facility] Chloride 104 98 - 110 mmol/L [facility] Carbon dioxide 26 20 - 32 mmol/L [facility] Calcium 9.2 8.9 - 10.4 mg/dL [facility] Protein Total (Serum) 7.2 6.3 - 8.2 g/dL [facility] Albumin 4.3 3.6 - 5.1 g/dL [facility] Globulin 2.9 2.0 - 3.8 g/dL (calc) [facility] Albumin/Globuli n 1.5 1.0 - 2.5 (calc) [facility] Bilirubin Total 0.2 0.2 - 1.1 mg/dL [facility] Alkaline phosphatase 74 47 - 176 U/L [facility] AST (SGOT) 17 12 - 32 U/L [facility] ALT (SGPT) 20 5 - 32 U/L [facility] 09/09/2018 9:55 AM EDT 09/09/2018 10:15 AM EDT Narrative [facility] - 09/10/2018 11:41 AM EDT Please note that this estimated GFR [...] with more precise needs for GFR calculation. Lloyd Howe MD LABORATORY Final Result Performing Organization Address City/State/[facility] Co de Phone Number [facility] [address] [place] [address] * (ABNORMAL) CBC INCLUDES DIFFERENTIAL AND PLATELET COUNT (09/09/2018 9:55 AM EDT) WBC 7.7 3.8 - 10.8 Thousand/u L [facility] RBC 4.65 3.80 - 5.10 Million/uL [facility] Hemoglobin 11.6(L) 11.7 - 15.5 g/dL [facility] Hematocrit 36.3 35.0 - 45.0 % [facility] MCV 78.1(L) 80.0 - 100.0 fL [facility] MCH 24.9(L) 27.0 - 33.0 pg [facility] MCHC 32.0 32.0 - 36.0 g/dL [facility] RDW 14.4 11.0 - 15.0 % [facility] PLT 351 140 - 400 Thousand/u L [facility] MPV 10.3 7.5 - 12.5 fL [facility] Neutrophils # 4866 1500 - 7800 cells/uL [facility] Lymphocytes # 2141 850 - 3900 cells/uL [facility] Monocytes # 524 200 - 950 cells/uL [facility] Eosinophils # 123 15 - 500 cells/uL [facility] Basophils # 46 0 - 200 cells/uL [facility] Neutrophils % 63.2 % [facility] Lymphocytes % 27.8 % [facility] Monocytes % 6.8 % [facility] Eosinophils % 1.6 % [facility] Basophils % 0.6 % [facility] 09/09/2018 9:55 AM EDT 09/09/2018 10:15 AM EDT Lloyd Howe MD LAB SAME DAY RESULT Final Res ult Performing Organization Address [facility] de Phone Number [facility] [address] [place] [address] * CHLAMYDIA TRACHOMATIS/N. GONORRHOEAE (GC) RNA, TMA (URINE) (09/09/2018 9:55 AM EDT) Chlamydia trachomatis rRNA NOT DETECTED NOT DETECTED [facility] Neisseria Gonorrhoeae rRNA NOT DETECTED NOT DETECTED [facility] COMMENT SEE NOTE [facility] Comment: This test was performed using the APTIMA COMBO2 Assay ([employer] The analytical performance characteristics of this assay, when used to test SurePath specimens have been determined by [employer]. 09/09/2018 9:55 AM EDT 09/09/2018 10:15 AM EDT Narrative Resulting Agency Comment [id number] Lloyd Howe MD LABORATORY Final Result Performing Organization Address [facility] de Phone Number [facility] [address] [place] [address] documented in this encounter Visit Diagnoses Diagnosis Encounter for screening for infections with predominantly sexual mode of transmission Screening examination for venereal disease Screening for deficiency anemia Screening for other and unspecified deficiency anemia Screening for diabetes mellitus Screening for cholesterol level Screening for lipoid disorders Secondary amenorrhea Absence of menstruation documented in this encounter Additional Health Concerns Infection Onset Date Last Indicated Resolved Time COVID-19 Rule-Out 06/13/2020 06/13/2020 06/14/2020 11:13 AM EST COVID-19 Rule-Out 06/29/2020 06/29/2020 06/29/2020 8:44 PM EST documented as of this encounter Care Teams Installation Technician Relationship Specialty Start Date End Date Bridgett Martínez NP PCP - General 06/18/18 02/16/22 Alec Mclain MD [address] [place] [address] PCP - General Family Medicine 02/17/22 08/21/22 Alec Mclain MD [address] [place] [address] PCP - General 08/22/22 documented as of this encounter
--- OUTSIDE RECORDS SUMMARY | 2024-06-30 16:33 | XMS_ITS | Encounter Summary ---
Author Organization [facility] Address [address] [place] [address] Care Team Providers Care Packaging Machine Supplies Distributor Name Role Phone Lloyd Howe MD Primary Care Provider [phone] Bridgett Martínez NP Primary Care Provider Alec Mclain MD Primary Care Provider [phone] Alec Mclain MD Primary Care Provider [phone] Encounter Details Date Type Department Care Team (Late st Contact Info) Description 12/31/2010 Orders Only [facility] [address] [place] [phone] Lloyd Howe MD [address] [place] [address] Social History Tobacco Use Types Packs/Day Years [...] of this encounter Procedures * Due to [place] state law, this organization might not be sharing negative HIV tests. Procedure Name Priority Date/Time Associated Diagnosis Comments LIPID PROFILE + FASTING GLUCOSE Routine 12/31/2010 11:13 AM EDT MOOD DISORDER xx0.37xx CBC (H/H, RBC, INDICES,WBC, PLT) Routine 12/31/2010 11:13 AM EDT Malaise and fatigue ALANINE AMINOTRANSFERASE (ALT), SERUM Routine 12/31/2010 11:13 AM EDT MOOD DISORDER xx0.37xx ASPARTATE AMINOTRANSFERASE (AST), SERUM Routine 12/31/2010 11:13 AM EDT MOOD DISORDER xx0.37xx THYROID STIMULATING HORMONE (TSH) WITH FREE T4 REFLEX, SERUM Routine 12/31/2010 11:13 AM EDT Malaise and fatigue documented in this encounter Results * Due to [place] state law, this organization might not be sharing negative HIV tests. * THYROID STIMULATING HORMONE (TSH) WITH FREE T4 REFLEX, SERUM (12/31/2010 11:13 AM EDT) TSH 2.07 mIU/L [facility] Comment: {TSH, 3RD GENERATION W/REFLEX TO FT4 {[id number]) Reference Range 1-19 Years ??0.50-4.30 ? Ranges First trimester ?? 0.20-4.70 Second trimester ??0.30-4.10 Third trimester ?? 0.40-2.70 12/31/2010 11:1 3 AM EDT 12/31/2010 8:16 PM EDT Narrative Resulting Agency Comment [id number] Lloyd Howe MD LABORATORY Final Result [facility] [address] [place] [address] * ALANINE AMINOTRANSFERASE (ALT), SERUM (12/31/2010 11:13 AM EDT) ALT (SGPT) 10 8 - 24 U/L [facility] Comment:{ALT {[id number]) 12/31/2010 11:1 3 AM EDT 12/31/2010 8:16 PM EDT Narrative Resulting Agency Comment [id number] Lloyd Howe MD LAB SAME DAY RESULT Final Res ult Performing Organization Address City/[facility] Co de Phone Number [facility] [address] [place] [address] * ASPARTATE AMINOTRANSFERASE (AST), SERUM (12/31/2010 11:13 AM EDT) AST (SGOT) 15 12 - 32 U/L [facility] Comment:{AST {[id number]) 12/31/2010 11:1 3 AM EDT 12/31/2010 8:16 PM EDT Narrative Resulting Agency Comment [id number] Lloyd Howe MD LAB SAME DAY RESULT Final Res ult Performing Organization Address [facility] de Phone Number [facility] [address] [place] [address] * (ABNORMAL) CBC (H/H, RBC, INDICES,WBC, PLT) (12/31/2010 11:13 AM EDT) WBC 5.9 4.5 - 13.5 Thousand/u L [facility] Comment:{WHITE BLOOD CELL CO UNT {[id number]) RBC 4.77 4.00 - 5.20 Million/uL [facility] Comment:{RED BLOOD CELL COUN T {[id number]) Hemoglobin 12.3 11.5 - 15.5 g/dL [facility] Comment:{HEMOGLOBIN {[id number]) Hematocrit 37.5 35.0 - 45.0 % [facility] Comment:{HEMATOCRIT {[id number]) MCV 78.6 77.0 - 95.0 fL [facility] Comment:{MCV {[id number]) MCH 25.7 25.0 - 33.0 pg [facility] Comment:{MCH {[id number]) MCHC 32.7 31.0 - 36.0 g/dL [facility] Comment:{MCHC {[id number]) RDW 15.8(H) 11.0 - 15.0 % [facility] Comment:{RDW {[id number]) PLT 254 140 - 400 Thousand/u L [facility] Comment:{PLATELET COUNT {[id number]) 12/31/2010 11:1 3 AM EDT 12/31/2010 8:16 PM EDT Narrative Resulting Agency Comment [id number] Lloyd Howe MD LAB SAME DAY RESULT Final Res ult Performing Organization Address [facility] Co de Phone Number [facility] [address] [place] [address] * (ABNORMAL) LIPID PROFILE + FASTING GLUCOSE (12/31/2010 11:13 AM EDT) Cholesterol 136 125 - 170 mg/dL [facility] Comment:{CHOLESTEROL, TOTAL {[id number]) HDL Cholesterol 39 37 - 75 mg/dL [facility] Comment:{HDL CHOLESTEROL {[id number]) Triglyceride 154(H) 38 - 135 mg/dL [facility] Comment:{TRIGLYCERIDES {[id number]) LDL Cholesterol 66 <110 mg/dL (calc) [facility] Comment: {LDL-CHOLESTEROL {[id number]) Desirable range <100 mg/dL for patients with CHD or diabetes and <70 mg/dL for diabetic patients with known heart disease. CHOL/HDL Ratio 3.5 < OR = 5.0 (calc) [facility] Comment:{CHOL/HDLC RATIO {[id number]) Glucose 96 65 - 99 mg/dL [facility] Comment: {GLUCOSE {[id number]) ? Fasting reference interval 12/31/2010 11:1 3 AM EDT 12/31/2010 8:16 PM EDT Narrative Resulting Agency Comment [id number] Lloyd Howe MD LABORATORY Final Result Performing Organization Address City/[facility]/ZIP Co de Phone Number [facility] [address] [place] [address] documented in this encounter Visit Diagnoses Diagnosis Mood Disorder (F39) Malaise and fatigue Other malaise and fatigue documented in this encounter Additional Health Concerns Infection Onset Date Last Indicated Resolved Time COVID-19 Rule-Out 06/13/2020 06/13/2020 06/14/2020 11:13 AM EST COVID-19 Rule-Out 06/29/2020 06/29/2020 06/29/2020 8:44 PM EST documented as of this encounter Care Teams Packaging Machine Supplies Distributor Relationship Specialty Start Date End Date Lloyd Howe MD [address] [place] [address] PCP - General 08/15/05 06/17/18 Bridgett Martínez NP [address] [place] [address] PCP - General 06/18/18 02/16/22 Alec Mclain MD [address] [place] [address] PCP - General Family Medicine 02/17/22 08/21/22 Alec Mclain MD [address] [place] [address] PCP - General 08/22/22 documented as of this encounter
--- OUTSIDE RECORDS SUMMARY | 2024-06-30 16:33 | XMS_ITS | Encounter Summary ---
Author Organization [facility] Address [address] [place] [address] Care Team Providers Care Cured Meats Supervisor Name Role Phone Lloyd Howe MD Primary Care Provider [phone] Bridgett Martínez NP Primary Care Provider Alec Mclain MD Primary Care Provider [phone] Alec Mclain MD Primary Care Provider [phone] Reason for Visit * Reason Onset Date Comments Refill Request 03/31/2012 Encounter Details Date Type Department Care Team (Late st Contact Info) Description 03/31/2012 Refill [facility] [address] [place] [phone] Lloyd Hoew MD [address] [place] [address] Refill Request Social History Tobacco Use Types Packs/Day Years Used Date Smoking Tobacco: Never Assessed Comments No Sex and Gender Information Value Date Recorded Sex Assigned at Not on file Legal Sex Female 11:11 AM EDT Gender Identity Not on file Sexual Orientation Not on file documented as of this encounter Miscellaneous Notes * Telephone Encounter - Daphnie Soler - 04/01/2012 9:31 AM EST Sent my chart message back to pt to verify. * Telephone Encounter - Lloyd Howe MD - 04/01/2012 9:17 AM EST Gabi takes ritalin LA 30 in the morning, and risperidone BID. She isn't taking vyvanse - it wasn't covered. Which med does she need? Maybe the risperidone??? * Telephone Encounter - Daphnie Soler - 03/31/2012 6:20 PM EST Pt had both doses of methylphenidate prescribed on 03/28/12. Does pt need rx for vyvanse as well? documented in this encounter Plan of Treatment Not on file documented as of this encounter Visit Diagnoses Diagnosis ADHD (attention deficit hyperactivity disorder)- Primary Attention deficit disorder with hyperactivity documented in this encounter Additional Health Concerns Infection Onset Date Last Indicated Resolved Time COVID-19 Rule-Out 06/13/2020 06/13/2020 06/14/2020 11:13 AM EST COVID-19 Rule-Out 06/29/2020 06/29/2020 06/29/2020 8:44 PM EST documented as of this encounter Care Teams Cured Meats Supervisor Relationship Specialty Start Date End Date Lloyd Howe MD [address] [place] [address] PCP - General 08/15/05 06/17/18 Bridgett Martínez NP [address] [facility] [place] [address] PCP - General 06/18/18 02/16/22 Alec Mclain MD [address] [place] [address] PCP - General Family Medicine 02/17/22 08/21/22 Alec Mclain MD [address] [place] [address] PCP - General 08/22/22 documented as of this encounter
--- OUTSIDE RECORDS SUMMARY | 2024-06-30 16:33 | XMS_ITS | Encounter Summary ---
Author Organization [facility] Address [address] [place] [address] Care Team Providers Care Heat Treat Worker Name Role Phone Bridgett Martínez NP Primary Care Provider [phone] Alec Mclain MD Primary Care Provider [phone] Alec Mclain MD Primary Care Provider [phone] Encounter Details Date Type Department Care Team (Late st Contact Info) Description 07/16/2020 Orders Only [facility] [address] [place] [phone] Bridgett Martínez NP [address] [facility] [address] [place], [place] [id number] Social History Tobacco Use Types Packs/Day Years Used Date Smoking Tobacco: Never Smokeless Tobacco: Never Alcohol Use Standard Drinks/Week Comments Not Asked 0 (1 standard drink = 0.6 oz pur e alcohol) PHQ-2 Answer Date Recorded PHQ-2 Score 0 07/16/2020 Housing Stability Answer Date Recorded Unable to [...] on file Sexual Orientation Not on file COVID-19 Exposure Response Date Recorded In the last month, have you been in contact with someone who was confirmed or suspected to have Coronavirus / COVID-19? No / Unsure 07/17/2020 9:56 AM EST documented as of this encounter Miscellaneous Notes * Result Encounter Note - Bridgett Martínez NP - 07/16/2020 9:58 AM EST Most labs are normal- I will let you know when the remaining labs are available. * Result Encounter Note - Bridgett Martínez NP - 07/16/2020 9:58 AM EST Mildly elevated testosterone- recommend following with gynecology. documented in this encounter Plan of Treatment Not on file documented as of this encounter Procedures * Due to [place] law, this organization might not be sharing negative HIV tests. Procedure Name Priority Date/Time Associated Diagnosis Comments HCG, TOTAL, QL Routine 07/16/2020 9:58 AM EST Irregular periods TSH, 3RD GENERATION Routine 07/16/2020 9 :58 AM EST Irregular periods VENIPUNCTURE Routine 07/16/2020 9:58 AM EST Irregular periods TESTOSTERONE, FREE(DIALYSIS) AND TOTAL, MS Routine 07/16/2020 9:58 AM EST Irregular periods documented in this encounter Results * Due to [place] law, this organization might not be sharing negative HIV tests. * HCG, TOTAL, QL (07/16/2020 9:58 AM EST) HCG, Qualitative (Screen) NEGATIVE [facility] Comment: Reference Range Non-: Negative : ? Positive 07/16/2020 9:58 AM EST 07/16/2020 11:06 AM EST Narrative Resulting Agency Comment [id number] Bridgett Martínez NP LAB SAME DAY RESULT Final Resul t Performing Organization Address [facility] de Phone Number [facility] [address] [place] [address] * (ABNORMAL) TESTOSTERONE, FREE(DIALYSIS) AND TOTAL, MS (07/16/2020 9:58 AM EST) Testosterone 31 2 - 45 ng/dL [facility] Comment: For additional information, please refer to http://education.Beyond the Rack/faq/ QmsnqRxjpvyqfmqqvEZBQGDEJQ640 (This link is being provided for informational/ educational purposes only.) This test was developed and its analytical performance characteristics have been determined by [employer] [place], [place]. It has not been cleared or approved by the U.S. Food and Drug Administration. This assay has been validated pursuant to the CLIA regulations and is used for clinical purposes. Testosterone, Free 6.6(H) 0.1 - 6.4 pg/mL [facility] Comment: This test was developed and its analytical performance characteristics have been determined by [employer], [place]. It has not been cleared or approved by the U.S. Food and Drug Administration. This assay has been validated pursuant to the CLIA regulations and is used for clinical purposes. 07/16/2020 9:58 AM EST 07/16/2020 11:06 AM EST Narrative Resulting Agency Comment [id number] Bridgett Martínez NP LABORATORY Final Result Performing Organization Address [facility] Co de Phone Number [facility] [address] [place] [address] * TSH, 3RD GENERATION (07/16/2020 9:58 AM EST) Pathologist [facility] TSH 2.65 mIU/L [facility] Comment: ?Reference Range ?> or = 20 Years ??0.40-4.50 ? Ranges ?First trimester ?0.26-2.66 ?Second trimester ?? 0.55-2.73 ?Third trimester ?0.43-2.91 07/16/2020 9:58 AM EST 07/16/2020 11:06 AM EST Narrative Resulting Agency Comment [id number] Bridgett Martínez [employer]LLOPH[employer] BATH MIXER LABORATORY Final Result Performing Organization Address [facility] Co de Phone Number [facility] [address] [place] [address] * T4, FREE, SERUM (07/16/2020 9:58 AM EST) FT4 1.0 0.8 - 1.8 ng/dL [facility] 07/16/2020 9:58 AM EST 07/16/2020 11:06 AM EST Narrative Resulting Agency Comment [id number] Bridgett Martínez [employer] LABORATORY Final Result Performing Organization Address [facility] de Phone Number [facility] [address] [place] [address] documented in this encounter Visit Diagnoses Diagnosis Irregular periods Irregular menstrual cycle documented in this encounter Care Teams Heat Treat Worker Relationship Specialty Start Date End Date Bridgett Martínez NP PCP - General 06/18/18 02/16/22 Alec Mclain MD [address] [place] [address] PCP - General Family Medicine 02/17/22 08/21/22 Alec Mclain MD [address] [place] [address] PCP - General 08/22/22 documented as of this encounter
--- OUTSIDE RECORDS SUMMARY | 2024-06-30 16:33 | XMS_ITS | Encounter Summary ---
Author Organization [facility] Address [address] [place] [address] Care Team Providers Care Supervisor Cutting And Sewing Room Name Role Phone Bridgett Martínez NP Primary Care Provider [phone] Alec Mclain MD Primary Care Provider [phone] Alec Mclain MD Primary Care Provider [phone] Encounter Details Date Type Department Care Team (Late st Contact Info) Description 07/08/2020 Orders Only [facility] [address] [place] [phone] Bridgett Martínez NP [address] [facility] [address] [place], [place] [phone] Social History Tobacco Use Types Packs/Day Years [...] have Coronavirus / COVID-19? No / Unsure 07/08/2020 7:55 AM EST documented as of this encounter Miscellaneous Notes * Result Encounter Note - Bridgett Martínez NP - 07/08/2020 8:31 AM EST Will review in the office. documented in this encounter Plan of Treatment Not on file documented as of this encounter Procedures * Due to [place] law, this organization might not be sharing negative HIV tests. Procedure Name Priority Date/Time Associated Diagnosis Comments CHLAMYDIA TRACHOMATIS/N. GONORRHOEAE (GC) RNA, TMA (URINE) Routine 07/08/2020 8:31 AM EST Encounter for screening for infections with predominantly sexual mode of transmission CBC INCLUDES DIFFERENTIAL AND PLATELET COUNT Routine 07/08/2020 8:31 AM EST Low mean corpuscular volume (MCV) ALANINE AMINOTRANSFERASE (ALT), SERUM Routine 07/08/2020 8:31 AM EST Elevated LFTs ASPARTATE AMINOTRANSFERASE (AST), SERUM Routine 07/08/2020 8:31 AM EST Elevated LFTs IRON PROFILE (IRON/TIBC), SERUM Routine 07/08/2020 8:31 AM EST Low mean corpuscular volume (MCV) FOLATE, SERUM Routine 07/08/2020 8:31 AM EST Low mean corpuscular volume (MCV) FERRITIN Routine 07/08/2020 8:31 AM EST Low mean corpuscular volume (MCV) VENIPUNCTURE Routine 07/08/2020 8:31 AM EST Elevated LFTs documented in this encounter Results * Due to [place] law, this organization might not be sharing negative HIV tests. * (ABNORMAL) IRON PROFILE (IRON/TIBC), SERUM (07/08/2020 8:31 AM EST) Iron 50 40 - 190 mcg/dL [facility] Iron binding capacity 371 250 - 450 mcg/dL (calc) [facility] Iron saturation 13(L) 16 - 45 % (calc) [facility] 07/08/2020 8:31 AM EST 07/08/2020 9:39 AM EST Narrative Resulting Agency Comment [id number] Bridgett Martínez NP LABORATORY Final Result Performing Organization Address [facility] de Phone Number [facility] [address] [place] [address] * FOLATE, SERUM (07/08/2020 8:31 AM EST) Pathologist [facility] Folate 14.6 ng/mL [facility] Comment: ? Reference Range ? Low: ? <3.4 ? Borderline: ?3.4-5.4 ? Normal: ?>5.4 07/08/2020 8:31 AM EST 07/08/2020 9:39 AM EST Narrative Resulting Agency Comment [id number] Bridgett Martínez NP LABORATORY Final Result Performing Organization Address [facility] de Phone Number [facility] [address] [place] [address] * FERRITIN (07/08/2020 8:31 AM EST) Pathologist [facility] Ferritin 22 16 - 154 ng/mL [facility] 07/08/2020 8:31 AM EST 07/08/2020 9:39 AM EST Narrative Resulting Agency Comment [id number] Bridgett Martínez NP LABORATORY Final Result [facility] [address] [place] [address] * (ABNORMAL) CBC INCLUDES DIFFERENTIAL AND PLATELET COUNT (07/08/2020 8:31 AM EST) WBC 6.1 3.8 - 10.8 Thousand/u L [...] 9:39 AM EST Narrative Resulting Agency Comment [id number] Bridgett Martínez NP LAB SAME DAY RESULT Final Resul t [facility] [address] [place] [address] * (ABNORMAL) ALANINE AMINOTRANSFERASE (ALT), SERUM (07/08/2020 8:31 AM EST) Pathologist [facility] ALT (SGPT) 39(H) 6 - 29 U/L [facility] 07/08/2020 8:31 AM EST 07/08/2020 9:39 AM EST Narrative Resulting Agency Comment [id number] [facility] LAB SAME DAY RESULT Final Resul t Performing Organization Address City/[facility]/ZIP Co de Phone Number [facility] [address] [place] [address] * ASPARTATE AMINOTRANSFERASE (AST), SERUM (07/08/2020 8:31 AM EST) AST (SGOT) 18 10 - 30 U/L [facility] 07/08/2020 8:31 AM EST 07/08/2020 9:39 AM EST Narrative Resulting Agency Comment [id number] Bridgett [facility] LAB SAME DAY RESULT Final Resul t Performing Organization Address [facility] de Phone Number [facility] [address] [place] [address] * BASIC METABOLIC PANEL WITH (GFR) (07/08/2020 8:31 AM EST) Glucose 97 65 - 99 mg/dL [facility] Comment:Fasting reference in terval Urea Nitrogen Blood (BUN) 11 7 - 25 mg/dL [facility] Creatinine 0.78 0.50 - 1.10 mg/dL [facility] EGFR 109 > OR = 60 mL/min/1. 73m2 [facility] GFR () 126 > OR = 60 mL/min/1. 73m2 [facility] BUN/Creatinine Ratio NOT APPLICABLE 6 - 22 (calc) [facility] Sodium 140 135 - 146 mmol/L [facility] Potassium 4.7 3.5 - 5.3 mmol/L [facility] Chloride 103 98 - 110 mmol/L [facility] Carbon dioxide 30 20 - 32 mmol/L [facility] Calcium 9.7 8.6 - 10.2 mg/dL [facility] 07/08/2020 8:31 AM EST 07/08/2020 9:39 AM EST Narrative [facility] - 07/08/2020 2:08 PM EST Please note that this estimated GFR does [...] needs for GFR calculation. Resulting Agency Comment [id number] Bridgett Martínez WINDOWS SYSTEMS ENGINEER LABORATORY Final Result Performing Organization Address [facility] Co de Phone Number [facility] [address] [place] [address] * CHLAMYDIA TRACHOMATIS/N. GONORRHOEAE (GC) RNA, TMA (URINE) (07/08/2020 8:31 AM EST) Chlamydia trachomatis rRNA NOT DETECTED NOT DETECTED [facility] Neisseria Gonorrhoeae rRNA NOT DETECTED NOT DETECTED [facility] COMMENT SEE NOTE [facility] Comment: The analytical performance characteristics of this assay, when used to test SurePath(TM) specimens have been determined by [employer]. The modifications have not been cleared or approved by the FDA. This assay has been validated pursuant to the CLIA regulations and is used for clinical purposes. For additional information, please refer to https://education.Jigsaw/faq/DNS870 (This link is being provided for information/ educational purposes only.) 07/08/2020 8:31 AM EST 07/08/2020 9:39 AM EST Narrative Resulting Agency Comment [id number] Bridgett Martínez NP LABORATORY Final Result Performing Organization Address [facility] Co de Phone Number [facility] [address] [place] [address] documented in this encounter Visit Diagnoses Diagnosis Encounter for screening for infections with predominantly sexual mode of transmission Screening examination for venereal disease Elevated LFTs Other abnormal blood chemistry Low mean corpuscular volume (MCV) documented in this encounter Care Teams Supervisor Cutting And Sewing Room Relationship Specialty Start Date End Date Bridgett Martínez NP PCP - General 06/18/18 02/16/22 Alec Mclain MD [address] [place] [address] PCP - General Family Medicine 02/17/22 08/21/22 Alec Mclain MD [address] [place] [address] PCP - General 08/22/22 documented as of this encounter
--- OUTSIDE RECORDS SUMMARY | 2024-06-30 16:33 | XMS_ITS | Encounter Summary ---
Author Organization [facility] Address [address] [place] [address] Care Team Providers Care Laboratory Assistant Name Role Phone Bridgett Martínez NP Primary Care Provider Alec Mclain MD Primary Care Provider [phone] Alec Mclain MD Primary Care Provider [phone] Encounter Details Date Type Department Care Team (Late st Contact Info) Description 06/27/2019 Orders Only [facility] Otolaryngology [address] [facility] [address] [place] [address] Denis Carrillo MD [address] [place], [place] [id number] Social History Tobacco Use Types Packs/Day Years [...] as of this encounter Progress Notes * Monet Bowman - 06/27/2019 5:07 PM EST Patient stated she was not on an antibiotic. Sent the Augmentin in for patient to take. documented in this encounter Plan of Treatment Not on file documented as of this encounter Procedures * Due to [facility] law, this organization might not be sharing negative HIV tests. Procedure Name Priority Date/Time Associated Diagnosis Comments CULTURE, THROAT Routine 06/27/2019 5:07 PM EST Tonsillitis documented in this encounter Results * Due to [place] [employer] law, this organization might not be sharing negative HIV tests. * (ABNORMAL) CULTURE, THROAT (06/27/2019 5:07 PM EST) Bacteria culture (Throat) SEE NOTE(A) [employer] Comment: ??CULTURE, THROAT ??Micro Number: ?[id number] ??Test Status: ? Final ??Specimen Source: ?? THROAT ??Specimen Quality: ??Adequate ??Result: ?Heavy growth of Group C Streptococcus ? Beta-hemolytic Streptococci are predictably ? susceptible to penicillin and other beta-lactams. ? Susceptibility testing not routinely performed. ??COMMENT: ? Normal oropharyngeal ankit also present. 06/27/2019 5:07 PM EST 06/27/2019 10:37 PM EST Narrative Resulting Agency Comment [id number] us Denis Carrillo MD LABORATORY Final Result Performing Organization Address City/State/[facility] Co de Phone Number [facility] [address] [place] [address] documented in this encounter Visit Diagnoses Diagnosis Tonsillitis Acute tonsillitis documented in this encounter Additional Health Concerns Infection Onset Date Last Indicated Resolved Time COVID-19 Rule-Out 06/13/2020 06/13/2020 06/14/2020 11:13 AM EST COVID-19 Rule-Out 06/29/2020 06/29/2020 06/29/2020 8:44 PM EST documented as of this encounter Care Teams Laboratory Assistant Relationship Specialty Start Date End Date Bridgett Martínez NP PCP - General 06/18/18 02/16/22 Alec Mclain MD [address] [place] [address] PCP - General Family Medicine 02/17/22 08/21/22 Alec Mclain MD [address] [place] [address] PCP - General 08/22/22 documented as of this encounter
--- OUTSIDE RECORDS SUMMARY | 2024-06-30 16:33 | XMS_ITS | Encounter Summary ---
Author Organization [facility] Address [address] [place] [address] Care Team Providers Care Coil Binder Name Role Phone Lloyd Howe MD Primary Care Provider [phone] Bridgett Martínez NP Primary Care Provider Alec Mclain MD Primary Care Provider [phone] Alec Mclain MD Primary Care Provider [phone] Encounter Details Date Type Department Care Team (Late st Contact Info) Description 08/04/2008 Orders Only [facility] [address] [place] [phone] Lloyd Howe MD [address] [place] [address] Social History Tobacco Use Types Packs/Day Years Used Date Smoking Tobacco: Never Assessed Comments Unknown Sex and Gender Information Value Date Recorded Sex Assigned at Not on file Legal Sex Female 11:11 AM EDT Gender Identity Not on file Sexual Orientation Not on file documented as of this encounter Plan of Treatment Not on file documented as of this encounter Procedures * Due to [place] state law, this organization might not be sharing negative HIV tests. Procedure Name Priority Date/Time Associated Diagnosis Comments CELIAC DISEASE COMPREHENSIVE PANEL Routine 08/04/2008 Family History of Celiac Disease LIPID PROFILE + FASTING GLUCOSE Routine 08/04/2008 ADHD documented in this encounter Results * Due to [place] state law, this organization might not be sharing negative HIV tests. * CELIAC DISEASE COMPREHENSIVE PANEL (08/04/2008) TTG IGA AB <3 <5 U/ML Comment: REFERENCE RANGE: ? <5 U/ML ?? NEGATIVE ?5-8 U/ML ?? EQUIVOCAL ? >8 U/ML ?? POSITIVE IGA 346 41 - 368 MG/DL 08/04/2008 08/04/2008 9:2 8 PM EDT Lloyd Howe MD LABORATORY Final Result * LIPID PROFILE + FASTING GLUCOSE (08/04/2008) CHOLESTEROL, TOTAL 155 125 - 170 MG/DL TRIGLYCERIDES 70 30 - 149 MG/DL Glucose 90 65 - 99 MG/DL HDL-CHOLESTEROL 47 40 - 77 MG/DL LDL-CHOLESTEROL 94 62 - 130 MG/DL Comment: RISK CATEGORY: ??LDL-CHOLESTEROL GOAL CHD AND CHD RISK EQUIVALENTS: ??<100 MULTIPLE (2+) FACTORS: ??<130 ZERO TO ONE RISK FACTOR: ??<160 CHD RELATIVE RISK RATIO (TOTAL/HDL) 3.30 0.0 - 5.0 Comment:(0.4 X AVERAGE) 08/04/2008 08/04/2008 9:2 8 PM EDT us Lloyd Howe MD LABORATORY Final Result documented in this encounter Visit Diagnoses Diagnosis ADHD Attention deficit disorder with hyperactivity Family history of celiac disease Family history of other digestive disorders documented in this encounter Additional Health Concerns Infection Onset Date Last Indicated Resolved Time COVID-19 Rule-Out 06/13/2020 06/13/2020 06/14/2020 11:13 AM EST COVID-19 Rule-Out 06/29/2020 06/29/2020 06/29/2020 8:44 PM EST documented as of this encounter Care Teams Coil Binder Relationship Specialty Start Date End Date Lloyd Howe MD [address] [place] [address] PCP - General 08/15/05 06/17/18 Bridgett Martínez NP [address] [place] [address] PCP - General 06/18/18 02/16/22 Alec Mclain MD [address] [place] [address] PCP - General Family Medicine 02/17/22 08/21/22 Alec Mclain MD [address] [place] [address] PCP - General 08/22/22 documented as of this encounter
--- OUTSIDE RECORDS SUMMARY | 2024-06-30 16:33 | XMS_ITS | Encounter Summary ---
Author Organization [facility] Address [address] [place] [address] Care Team Providers Care Sane Rn Name Role Phone Lloyd Howe MD Primary Care Provider [phone] Bridgett Martínez NP Primary Care Provider [phone] Alec Mclain MD Primary Care Provider [phone] Alec Mclain MD Primary Care Provider [phone] Encounter Details Date Type Department Care Team (Late st Contact Info) Description 02/07/2013 Orders Only [facility] [address] [place] [phone] Jane Gregg, AMADOR PhD Social History Tobacco Use Types Packs/Day Years [...] as of this encounter Progress Notes * Rom Brianna - 02/09/2013 11:36 AM EDTQuick Note: Will treat - tmsg to nurse pool for pharmacy name & if patiient can swallow pills. documented in this encounter Plan of Treatment Not on file documented as of this encounter Procedures * Due to [place] [employer] law, this organization might not be sharing negative HIV tests. Procedure Name Priority Date/Time Associated Diagnosis Comments STREPTOCOCCUS, GROUP A CULTURE Routine 02/07/2013 1:41 PM EDT Sore throat documented in this encounter Results * Due to [place] ipsy law, this organization might not be sharing negative HIV tests. * (ABNORMAL) STREPTOCOCCUS, GROUP A CULTURE (02/07/2013 1:41 PM EDT) Culture, Streptococci Group A, Throat SEE NOTE(A) [employer] Comment: {STREPTOCOCCUS, GROUP A CULTURE {[id number]) ??STREPTOCOCCUS, GROUP A CULTURE ??MICRO NUMBER: ?[id number] ??TEST STATUS: ? FINAL ??SPECIMEN SOURCE: ?? THROAT ??SPECIMEN QUALITY: ??ADEQUATE ??RESULT: ?Moderate growth of Group A Streptococcus ? Beta-hemolytic Streptococci are ? predictably susceptible to penicillin ? and other beta-lactams. ? Susceptibility testing not routinely ? performed. 02/07/2013 1:41 PM EDT 02/07/2013 8:58 PM EDT Narrative Resulting Agency Comment [id number] us Jane Gregg NP PhD LABORATORY Final Res ult Performing Organization Address City/State/[facility] Co de Phone Number [facility] [address] [place] [address] documented in this encounter Visit Diagnoses Diagnosis Sore throat Acute pharyngitis documented in this encounter Additional Health Concerns Infection Onset Date Last Indicated Resolved Time COVID-19 Rule-Out 06/13/2020 06/13/2020 06/14/2020 11:13 AM EST COVID-19 Rule-Out 06/29/2020 06/29/2020 06/29/2020 8:44 PM EST documented as of this encounter Care Teams Sane Rn Relationship Specialty Start Date End Date Lloyd Howe MD [address] [place] [address] PCP - General 08/15/05 06/17/18 Bridgett Martínez NP [address] [place] [address] PCP - General 06/18/18 02/16/22 Alec Mclain MD [address] [place] [address] PCP - General Family Medicine 02/17/22 08/21/22 Alec Mclain MD [address] [place] [address] PCP - General 08/22/22 documented as of this encounter
--- NOTE | 2024-06-30 16:47 | ED.GENADULT ---
HPI - General Adult General Chief complaint: General Medical Stated complaint: R Side Pain Time Seen by Provider: 06/30/24 16:12 Related Data Allergies Allergy/AdvReac Type Severity Reaction Status Date / Time No Known Allergies Allergy Verified 06/30/24 10:41 [facility] Social History Social History Advance Directives: No Advance Directives Information Provided: No Do you have a plan to hurt others: No Plan Physical Exam ED Vital Signs: Vital Signs - 24 hr 06/30/24 10:40 06/30/24 16:18 Temperature 98 F 98.2 F Pulse Rate 89 112 H Respiratory Rate 19 14 Blood Pressure 113/74 134/82 Pulse Oximetry 99 99 Oxygen Delivery Method Room Air Room Air BMI result Body Mass Index 24.8 Medical Decision Making Lab Data 06/30/24 11:19 06/30/24 11:19 Labs: Lab Results 06/30/24 Range/Units 11:19 WBC 13.3 H (4.8-10.8) X10*3/uL RBC 4.62 (4.20-5.50) X10*6/uL Hgb 12.4 (12.0-16.0) g/dl Hct 36.5 L (37.0-47.0) % MCV 79.0 L (80.0-98.0) fL MCH 26.8 L (27.0-33.0) pg MCHC 34.0 (31.0-35.0) g/dl RDW 14.2 (11.0-16.0) % Plt Count 319 (160-400) X10*3/uL MPV 9.2 L (9.4-12.3) fL Immature Gran % (Auto) 0.5 H (0.0-0.4) % Neut % (Auto) 82.8 H (45-73) % Lymph % (Auto) 8.0 L (20-40) % [place] % (Auto) 8.1 (2-11) % Eos % (Auto) 0.1 (0-4) % Baso % (Auto) 0.5 (0-2) % Lymph # (Auto) 1.1 L (1.2-4.9) X10*3/uL [place] # (Auto) 1.1 (0.1-1.2) X10*3/uL Eos # (Auto) 0.0 (0.0-0.4) X10*3/uL Baso # (Auto) 0.1 (0.0-0.2) X10*3/uL Abs Immat Gran (auto) 0.07 H (0.00-0.03) X10*3/uL Absolute Neuts (auto) 11.0 H (2.0-8.3) x10*3/uL Absolute Nucleated RBC 0.000 (0.0-0.012) X10*3/uL Nucleated RBC % (auto) 0.0 (0.0-0.2) /100WBC Sodium 132 L (135-145) mmol/L Potassium 3.4 (3.3-5.1) mmol/L Chloride 98 (96-108) mmol/L Carbon Dioxide 26 (22-29) mmol/L Anion Gap 11 L (12-20) BUN 7 L (9-16) mg/dL Creatinine 0.71 (0.5-1.4) mg/dL Estim Creat Clear Calc 92.2 Estimated GFR > 60 Random Glucose 94 (60-115) mg/dL Calcium 9.1 (8.4-10.2) mg/dL Total Bilirubin 0.7 (0.0-1.0) mg/dL Direct Bilirubin 0.3 (0.0-0.5) mg/dL AST 19 (5-31) U/L ALT 12 (0-31) U/L Alkaline Phosphatase 77 (39-117) U/L Total Protein 8.3 H (6.5-8.0) g/dL Albumin 4.0 (3.5-5.0) g/dL Lipase 10 (8-78) U/L Urine Color Yellow Urine Appearance Clear Urine pH 6.0 (5.0-9.0) Ur Specific [place] <= 1.005 (1.005-1.025) Urine Protein Negative (Neg-Trace) mg/dL Urine Glucose (UA) Negative (Negative) mg/dL Urine Ketones 15 (Negative) mg/dL Urine Blood Small (1+) H (Negative) Urine Nitrite Negative (Negative) Ur Leukocyte Esterase Small (1+) H (Negative) Urine RBC 0-2 (0-2) /HPF Urine WBC 11-20 H (0-5) /HPF Ur Squamous Epith Cells 0-2 (0-2) /HPF Urine Bacteria None Seen (None Seen) Hyaline Casts 3-5 (0-2) /LPF Urine Test NEGATIVE (NEGATIVE) Discharge Plan Discharge Print Language: Bruneian
--- NOTE | 2024-06-30 16:47 | ED.ABDPAIN ---
HPI - Abdominal Pain General Chief Complaint: General Medical Stated Complaint: R Side Pain Time Seen by Provider: 06/30/24 16:12 Source: patient Mode of arrival: ambulatory Limitations: no limitations History of Present Illness ED Provider: Lena Baker NP HPI narrative: Patient is a 23-year-old female who presents emergency department presents emergency department for evaluation. She reports over the past 5 days she has been experiencing pain to the right flank radiating down into her right lower quadrant of her abdomen. She has had mild associated nausea. This morning she had a single episode of vomiting upon awakening bilious emesis without any blood. She has not had anything to eat today. But she does state over the past 5 days she has been able to eat or drink without vomiting. She admits that the pain feels worse if she is lying down at night or ?when the cold air hits my back?. She has a Lidoderm patch to the back at this time but she states she has not noticed any difference in the pain. She admits that approximately 2 years ago she was told by her primary care doctor that she needed to have her gallbladder removed but had no further follow-up in regards to this. Denies fevers, chills, chest pain, hematemesis, diarrhea, constipation, hematochezia, melena, dysuria, urinary frequency, urinary urgency, urinary hesitancy, hematuria. denies pelvic pain or abnormal vaginal discharge. Denies concern for sexually transmitted infection. Denies concern for , however LMP unknown as she states her menses are regular have been that way since she was a young child, may have been a few months. Related Data Previous Rx's ?Medication ?Instructions ?Recorded cephalexin 500 mg capsule 500 mg PO QID 10 days #40 caps 06/30/24 Allergies Allergy/AdvReac Type Severity Reaction Status Date / Time No Known Allergies Allergy Verified 06/30/24 10:41 Review of Systems Review of Systems Yes all other systems are reviewed and are negative PMFSH Past Medical History Attestation statement: The following information was validated with the patient. Source: old records reviewed Social History Social History Advance Directives: No Advance Directives Information Provided: No Do you have a plan to hurt others: No Plan Physical Exam ED Vital Signs: Vital Signs - 24 hr 06/30/24 10:40 06/30/24 16:18 06/30/24 17:44 Temperature 98 F 98.2 F Pulse Rate 89 112 H 92 Respiratory Rate 19 14 Blood Pressure 113/74 134/82 120/66 Pulse Oximetry 99 99 97 Oxygen Delivery Method Room Air Room Air Room Air 06/30/24 17:47 06/30/24 18:07 06/30/24 18:27 Temperature Pulse Rate 92 92 101 H Respiratory Rate 19 Blood Pressure 119/67 98/58 L 98/65 Pulse Oximetry Oxygen Delivery Method 06/30/24 18:55 06/30/24 19:27 Temperature 98.2 F Pulse Rate 100 104 H Respiratory Rate 16 20 Blood Pressure 103/82 98/62 Pulse Oximetry 98 Oxygen Delivery Method Room Air BMI result Body Mass Index 24.8 Appearance: Alert.?Oriented to person, place and time. No acute distress.?Normal affect.?? Neck: Normal inspection.? Neck supple.?? CVS: Heart sounds normal. Normal heart rate and rhythm.? Pulses normal.?? Respiratory: No respiratory distress.? Lung sounds clear to auscultation bilaterally?? Abdomen: Soft with notable right lower quadrant tenderness upon palpation, mild right upper quadrant tenderness,, no rebound tenderness at McBurney's point, negative Monae's sign.. Right CVAT. Negative psoas sign. Negative Rovsing sign. Normoactive bowel sounds. No pulsatile mass.?? Skin: Skin warm and dry.? Normal skin color.? Extremities: No lower extremity edema.? Neuro: Moves all extremities spontaneously. Sensation intact bilaterally. Ambulates with normal steady gait. Course Reevaluation(s) Reevaluation #1: Patient signed out to Viktor HAWKINS pending CT abdomen pelvis, re-evaluation and disposition Time: 18:45 Reevaluation #2: 9:[address] results returned. Concern for possible right-sided pyelonephritis. At this time I have re-evaluated the patient. Patient reports that she is feeling much better. Reassessment of the patient's abdomen is soft and nontender throughout. She denies any dysuria, hematuria, vaginal discharge bleeding or spotting. She denies any trauma. She does report mild right low back discomfort. She does have some mild tenderness in this region but no CVA tenderness. Given that the patient has markers for inflammation, slightly elevated white blood cells, urinalysis with increased white blood cells and CT scan findings, we will treat for possible UTI or early pyelonephritis. I have reviewed this with the patient. She feels comfortable with this plan. She will continue increasing fluids, Tylenol or ibuprofen for pain and Keflex at home. The patient has already received a dose ceftriaxone while in the emergency department. I reviewed all discharge instructions. Patient expressed understanding and has no further questions at this time. Medical Decision Making Medical Decision Making [facility] Narrative: Patient is a 23-year-old female who presents emergency department for evaluation of right flank/lower abdominal pain over the past 5 days mild associated nausea and a single episode of vomiting today. Pain is progressively worsening as per HPI. Has been tolerating eating and drinking, today is not had much of an appetite but has been able to drink water without vomiting not had any solid intake today. At the time of my evaluation; 17: 00 she feels warm to the touch, temp is 99.6 degrees, up trending from 98.2 45 minutes prior, she is mildly tachycardic 112, labs obtained prior to my assumption of care showing a leukocytosis of 13,300 with left shift, meeting SIRS criteria, sepsis alert called blood cultures and lactic acid to be obtained, will give sepsis fluid bolus at 30 mL/kg. CRP is notably elevated 13.[address] of the abdomen and pelvis for further evaluation, differential including urinary tract infection, pyelonephritis, hydronephrosis, nephrolithiasis/ureteral calculi, appendicitis, acute cholecystitis. lower clinical suspicion for colitis/obstruction give no gastrointestinal symptoms associated, denies concern for sexually transmitted infection, lower suspicion for TOA, no history of ovarian cyst to suggest ovarian torsion. HCG is negative not consistent with ectopic . Urinalysis with 1+ blood, 1+ leukocyte esterase, urine WBCs no squamous epithelial cells or bacteria seen. Mild hyponatremia 132 otherwise without electrolyte derangement no PAOLO, likely secondary to dehydration with lack of intake today.. Differential Diagnosis Differential Diagnoses: The differential diagnosis associated with the presentation includes (See narrative above) Admission/Observation Consideration of admission/observation: Escalation of care including admission/observation considered (See narrative above ) Lab Data [facility] Lab Attestation statement: I reviewed the patient's lab results. (See narrative above) 06/30/24 11:19 06/30/24 11:19 Labs: Lab Results 06/30/24 06/30/24 Range/Units 11:19 17:18 WBC 13.3 H (4.8-10.8) X10*3/uL RBC 4.62 (4.20-5.50) X10*6/uL Hgb 12.4 (12.0-16.0) g/dl Hct 36.5 L (37.0-47.0) % MCV 79.0 L (80.0-98.0) fL MCH 26.8 L (27.0-33.0) pg MCHC 34.0 (31.0-35.0) g/dl RDW 14.2 (11.0-16.0) % Plt Count 319 (160-400) X10*3/uL MPV 9.2 L (9.4-12.3) fL Immature Gran % (Auto) 0.5 H (0.0-0.4) % Neut % (Auto) 82.8 H (45-73) % Lymph % (Auto) 8.0 L (20-40) % [place] % (Auto) 8.1 (2-11) % Eos % (Auto) 0.1 (0-4) % Baso % (Auto) 0.5 (0-2) % Lymph # (Auto) 1.1 L (1.2-4.9) X10*3/uL [place] # (Auto) 1.1 (0.1-1.2) X10*3/uL Eos # (Auto) 0.0 (0.0-0.4) X10*3/uL Baso # (Auto) 0.1 (0.0-0.2) X10*3/uL Abs Immat Gran (auto) 0.07 H (0.00-0.03) X10*3/uL Absolute Neuts (auto) 11.0 H (2.0-8.3) x10*3/uL Absolute Nucleated RBC 0.000 (0.0-0.012) X10*3/uL Nucleated RBC % (auto) 0.0 (0.0-0.2) /100WBC Sodium 132 L (135-145) mmol/L Potassium 3.4 (3.3-5.1) mmol/L Chloride 98 (96-108) mmol/L Carbon Dioxide 26 (22-29) mmol/L Anion Gap 11 L (12-20) BUN 7 L (9-16) mg/dL Creatinine 0.71 (0.5-1.4) mg/dL Estim Creat Clear Calc 92.2 Estimated GFR > 60 Random Glucose 94 (60-115) mg/dL Lactic Acid 0.7 (0.5-2.0) mmol/L Calcium 9.1 (8.4-10.2) mg/dL Total Bilirubin 0.7 (0.0-1.0) mg/dL Direct Bilirubin 0.3 (0.0-0.5) mg/dL AST 19 (5-31) U/L ALT 12 (0-31) U/L Alkaline Phosphatase 77 (39-117) U/L C-Reactive Protein 13.08 H (< or = 0.50) mg/dL Total Protein 8.3 H (6.5-8.0) g/dL Albumin 4.0 (3.5-5.0) g/dL Lipase 10 (8-78) U/L Urine Color Yellow Urine Appearance Clear Urine pH 6.0 (5.0-9.0) Ur Specific [place] <= 1.005 (1.005-1.025) Urine Protein Negative (Neg-Trace) mg/dL Urine Glucose (UA) Negative (Negative) mg/dL Urine Ketones 15 (Negative) mg/dL Urine Blood Small (1+) H (Negative) Urine Nitrite Negative (Negative) Ur Leukocyte Esterase Small (1+) H (Negative) Urine RBC 0-2 (0-2) /HPF Urine WBC 11-20 H (0-5) /HPF Ur Squamous Epith Cells 0-2 (0-2) /HPF Urine Bacteria None Seen (None Seen) Hyaline Casts 3-5 (0-2) /LPF Urine Test NEGATIVE (NEGATIVE) Radiology Impression Discussion of test interpretation with radiology: I have reviewed the radiologist's reading. External Record Review External record reviewed: Outpatient record Medications Administered Discontinued Medications Generic Name Dose Route Start Last Admin Trade Name Freq PRN Reason Stop Dose Admin Acetaminophen 650 mg 06/30/24 16:57 06/30/24 18:34 Acetaminophen 325 Mg Tablet PO 06/30/24 16:58 650 mg ONCE ONE Administration Ceftriaxone Sodium 1 gm 06/30/24 17:04 06/30/24 17:29 Ceftriaxone Sodium 1 Gm Vial IVPUSH 06/30/24 17:05 1 gm ONCE ONE Administration Sodium Chloride 1,673.76 mls @ 1,673.76 mls/hr 06/30/24 17:03 06/30/24 19:24 Ns 30 ml/kg infuse over 1 hr (1673.76 ml) 06/30/24 18:02 Infused IV Infusion .Q1H STA Iohexol 85 ml 06/30/24 18:46 06/30/24 18:47 Iohexol 350 Mg/Ml 100 Ml Infus..Btl IV 06/30/24 18:47 85 ml ONCE ONE Administration Ketorolac Tromethamine 15 mg 06/30/24 16:57 06/30/24 18:33 Ketorolac Tromethamine 15 Mg/Ml Vial IVPUSH 06/30/24 16:58 15 mg ONCE ONE Administration Ondansetron HCl 4 mg 06/30/24 16:57 06/30/24 18:34 Ondansetron Hcl 4 Mg/2 Ml Vial IVPUSH 06/30/24 16:58 4 mg ONCE ONE Administration Discharge Plan Discharge Clinical Impression: Acute flank pain Patient Disposition: Home, Self-Care Instructions: Kidney Infection (ED), Flank Pain (ED) Additional Instructions: Your CT scan shows you may have infection in the urinary tract system. Keflex as directed. Finish all antibiotics. You received a dose of antibiotics in the IV today. Tylenol or ibuprofen for pain Follow-up with your primary care provider. Call this week to schedule a follow-up appointment. Return to the emergency department if you have any worsening of symptoms, or any concerns. Get well soon! Prescriptions: New cephalexin 500 mg capsule 500 mg PO QID 10 Days Qty: 40 0RF Stand Alone Forms: Work/School Release Print Language: Wolof
[2024-06-30] MEDS: cefTRIAXone sodium 1 GM VIAL IVPUSH (17:29)
[2024-06-30] MEDS: SODIUM CHLORIDE 1673.76 ML IV (17:37)
[2024-06-30 17:38] LABS: C Reactive Protein 13.08 mg/dL (< or = 0.50)
[2024-06-30 17:40] LABS: Lactic Acid 0.7 mmol/L (0.5-2.0)
[2024-06-30] MEDS: Ketorolac Tromethamine 15 MG/ML VIAL IVPUSH (18:33)
[2024-06-30] MEDS: ondansetron HCL 4 MG/2 ML VIAL IVPUSH (18:34)
[2024-06-30] MEDS: Acetaminophen 325 MG TABLET 650 MG PO (18:34)
[2024-06-30] MEDS: iohexoL 350 MG/ML 100 ML INFUS..BTL 85 ML IV (18:47)
== END 2024-06-30 23:02 | disposition home or self-care (01) ==
PROVIDERS: Nurse Practitioner Family; Emergency Provider Emergency Medicine
DX: R10.31 Right lower quadrant pain (principal); R11.2 Nausea with vomiting, unspecified; Z79.899 Other long term (current) drug therapy
CPT/HCPCS: 36415; 74177; 80048; 80076; 81001; 81025; 83605; 83690; 85025; 86140; 87040; 87086; 87088; 87147; 87186; 87205; 96361; 96374; 96375; 99284; J0696; J1885; J2405; Q9967

== ENCOUNTER → 2024-06-30 16:57 | Outpatient (BNV) | payer SELFPAY | PROVIDERS: Emergency Provider Emergency Medicine; Visit Provider Specialist | DX: N11.1 Chronic obstructive pyelonephritis (principal) | CPT/HCPCS: 74177 ==